=== PATIENT | female | born 1945 | race Caucasian/White ===

== ENCOUNTER 2025-07-09 14:10 | Observation (INO) ==
--- NOTE | 2025-07-09 14:55 | DR.CP ---
HPI Time Seen Time Seen by Provider: 07/09/25 14:39 PCP Primary Care Physician: Jude Viera Complaint Chief Complaint Doctor Comments: 80 yo F, hx of cardiac disease with prior pacemaker placement, hx afib on pradaxa, c/o RQ abd pain for past 1 wk. Admits to assoc nausea. Denies vomiting or diarrhea. Denies other complaints. Chief Complaint:: Pt states for the last week she has had some RUQ pain that goes through her abdomen to her back and has radiated to her epigastric area. Pt c/o dizziness for the last 4 days. Denies fever, vomiting or diarrhea. COVID-19 Coronavirus risk:travel/contact w/high risk person: No Has patient experienced Coronavirus symptoms: No Source History Provided: Patient and Family Member Mode of Arrival Mode of Arrival: Ambulatory Timing Onset of Chief Complaint: 07/02/25 Location Chest Pain Radiation Location: None Associated Signs and Symptoms Associated Signs and Symptoms: None PMH PMH Past Medical History: Yes Past Medical History: Arthritis, Hypertension and Renal Disease Past Medical History Comment: A-fib Past Surgical History: Yes Surgical History: Hysterectomy, Ortho Surgery and Weight Loss Surgery Past Surgical History Comment: pacemaker, rt knee ortho Family History History of Family Medical Conditions: Yes Family Medical History: Diabetes Mellitus, Cancer, Coronary Artery Disease and Hypertension Social History Alcohol Use: None Do you use any recreational Drugs:: No Lives With: Family Lives Where: Home Travel Risk Coronavirus risk:travel/contact w/high risk person: No Has patient experienced Coronavirus symptoms: No Infectious screening Have you traveled outside the country in the last 6 months?: No Isolation: Standard ROS Review of Systems Gastrointestinal/Abdominal: Abdominal Pain (RUQ) and Nausea; negative Diarrhea or Vomiting All Other Systems: Reviewed and Negative PE Vitals Vitals: Vital Signs Temperature 97.4 F Pulse Rate 76 Respiratory Rate 19 Blood Pressure 98/59 O2 Sat by Pulse Oximetry 98 General Limitations: No Limitations General Appearance: Alert and In No Apparent Distress Head Head Exam: Normal Inspection Eyes Eye exam: Normal Appearance ENT ENT Exam: Normal Exam Chest Chest Inspection: Normal Inspection Respiratory Respiratory Exam: Normal Lung Sounds Bilat Cardiovascular Cardiovascular Exam: Regular Rate and Normal Rhythm Pulse: Normal Edema: Normal Abdominal Exam Abdominal Exam: Soft, Tenderness (RUQ) and Rebound; negative Distention or Guarding Extremities Extremities Exam: Normal Inspection Back Back Exam: Normal Inspection Neurologic Neurological Exam: Alert and Oriented X3 Psychiatric Psychiatric Exam: Normal Affect and Normal Mood Skin Skin Exam: Warm, Dry, Intact and Normal Color ROR Labs Reviewed Laboratory Results Reviewed?: Yes 07/09/25 15:01 07/09/25 15:01 Laboratory: WBC 7.4 X10^3/uL (3.6-10.0) 07/09/25 15:01 RBC 4.01 X10^6/uL (3.5-5.4) 07/09/25 15:01 Hgb 11.4 g/dL (12.0-16.0) L 07/09/25 15:01 Hct 35.1 % (36.0-47.0) L 07/09/25 15:01 MCV 87.5 fL (80.0-100.0) 07/09/25 15:01 MCH 28.5 pg (27.0-34.0) 07/09/25 15:01 MCHC 32.6 g/dL (33.0-35.0) L 07/09/25 15:01 RDW 17.4 % (11.6-16.5) H 07/09/25 15:01 Plt Count 223 X10^3/uL (150.0-450.0) 07/09/25 15:01 MPV 8.5 fL (7.4-11.0) 07/09/25 15:01 Neut % (Auto) 64.0 % (42.0-75.0) 07/09/25 15:01 Lymph % (Auto) 17.5 % (21.0-51.0) L 07/09/25 15:01 [place] % (Auto) 11.2 % (0.0-13.0) 07/09/25 15:01 Eos % (Auto) 6.7 % (0.9-2.9) H 07/09/25 15:01 Baso % (Auto) 0.6 % (0.2-1.0) 07/09/25 15:01 Neut # (Auto) 4.7 x10^3/uL (2.2-4.8) 07/09/25 15:01 Lymph # (Auto) 1.3 X10^3/uL (1.3-2.9) 07/09/25 15:01 [place] # (Auto) 0.8 x10^3/uL (0.3-0.8) 07/09/25 15:01 Eos # (Auto) 0.5 x10^3/uL (0.0-0.2) H 07/09/25 15:01 Baso # (Auto) 0.0 X10^3/uL (0.0-0.1) 07/09/25 15:01 Absolute Nucleated RBC 0.0 /100WBC 07/09/25 15:01 PT 38.0 SECONDS (11.8-14.3) 07/09/25 15:01 INR Target Range - 07/09/25 15:01 INR 3.84 (0.8-1.3) H 07/09/25 15:01 APTT 142.3 SECONDS (22.9-36.5) H* 07/09/25 15:01 PTT Comment - 07/09/25 15:01 Sodium 139 mmol/L (136-145) 07/09/25 15:01 Corrected Sodium TNP 07/09/25 15:01 Potassium 4.0 mmol/L (3.5-5.1) 07/09/25 15:01 Chloride 101 mmol/L (98-107) 07/09/25 15:01 Carbon Dioxide 28.7 mmol/L (21-32) 07/09/25 15:01 BUN 30 mg/dL (7-18) H 07/09/25 15:01 Creatinine 2.91 mg/dL (0.55-1.02) H 07/09/25 15:01 Est GFR (MDRD) Af Amer 20 (>60) L 07/09/25 15:01 Est GFR (MDRD) Non-Af 17 (>60) L 07/09/25 15:01 Glucose 97 mg/dL (65-99) 07/09/25 15:01 Calcium 8.6 mg/dL (8.5-10.1) 07/09/25 15:01 Corrected Calcium TNP 07/09/25 15:01 Magnesium 2.0 mg/dL (2.0-2.9) 07/09/25 15:01 Total Bilirubin 0.20 mg/dL (0.2-1.0) 07/09/25 15:01 AST 20 Units/L (15-37) 07/09/25 15:01 ALT 12 Units/L (12-78) 07/09/25 15:01 Alkaline Phosphatase 109 Units/L (46-116) 07/09/25 15:01 Creatine Kinase 89 Units/L (26-192) 07/09/25 15:01 Troponin I High Sens 6.9 ng/L (4.0-60.0) 07/09/25 15:01 Total Protein 7.3 g/dL (6.4-8.2) 07/09/25 15:01 Albumin 3.6 g/dL (3.4-5.0) 07/09/25 15:01 Globulin 3.7 g/dL (2.5-4.5) 07/09/25 15:01 Albumin/Globulin Ratio 1.0 Ratio (1.1-2.1) L 07/09/25 15:01 Lipase 47 Units/L (16-77) 07/09/25 15:01 Opioid Opioid Risk Tool Age (Carl box if 16-45): No History of Preadolescent Sexual Abuse: No Total: 0 Total Score Risk Category: Low Risk Copyright: Melo SHELTON predicting aberrant behaviors Discharge Plan Diagnosis Discharge Problem: Acute cholecystitis Discharge Plan Patient Disposition: ADMITTED INPATIENT Condition: Stable Prescriptions: No Action cetirizine 10 mg tablet 10 mg PO QPM furosemide 20 mg tablet 20 mg PO QDAY metoprolol succinate 25 mg tablet extended release 24 hr 25 mg PO QDAY loratadine 10 mg tablet 10 mg PO QAM amiodarone 200 mg tablet 200 mg PO BID meloxicam 7.5 mg tablet 7.5 mg PO BID citalopram 20 mg tablet 20 mg PO QDAY ergocalciferol (vitamin D2) 1,250 mcg (50,000 unit) capsule 1,250 mcg PO QWEEK Rx Instructions: one capsule po q monday dabigatran etexilate 150 mg capsule 150 mg PO BID Health Concerns: Post Hospitalization: new medications and changes needed to prevent readmission or further decline. Pt educated and given instructions on all concerns. Plan of Treatment: Continue with present treatment and follow up plan. Pt is to keep follow up appointment as instructed and take medications as ordered. Orders to Discharge Patient Discharge Orders: Transfer (Routine); Ordered 07/09/25 Ordered By: David Carrasco Follow ups/Referrals Follow ups/Referrals: JUDE VIERA [Primary Care Provider, Unknown] - 3 days Instructions Stand Alone Forms: Find Help Web Site, Post Hospital Follow Up Care Print Language: KYRGYZ ADDITIONAL NOTES Additional Notes Additional Notes: Pt accepted by Dr Platt
--- NOTE | 2025-07-09 15:18 | EKG ---
Test Reason : epi abd pain Blood Pressure : */* mmHG Vent. Rate : 75 BPM Atrial Rate : 75 BPM P-R Int : 290 ms QRS Dur : 80 ms QT Int : 452 ms P-R-T Axes : * 11 -23 degrees QTc Int : 504 ms Atrial-paced rhythm with prolonged AV conduction Low voltage QRS Nonspecific T wave abnormality Cannot rule out Anterior infarct (cited on or before 13-SEP-2023) Abnormal ECG When compared with ECG of 13-SEP-2023 12:51, No significant change was found Confirmed by Jone Aldrich MD ([id number]) on 07/10/2025 5:32:52 AM Referred By: Confirmed By: Jone Aldrich MD
[2025-07-09 15:24] LABS: MEAN PLATELET VOLUME 8.5 fL (7.4-11.0); RED CELL DISTRIBUTION WIDTH 17.4 % (11.6-16.5)
[2025-07-09 15:29] LABS: INR 3.84 (0.8-1.3)
[2025-07-09 15:31] LABS: CREATININE 2.91 mg/dL (0.55-1.02); eGFR NON BLACK RACES 17 (>60)
--- NOTE | 2025-07-09 16:35 | RAD ---
EXAM: CHEST, 1 VIEW HISTORY: SOB; COMPARISON: No relevant prior studies were available for comparison at the time of interpretation. TECHNIQUE: CHEST, 1 VIEW FINDINGS: Chest: Lines and tubes: Left-sided pacemaker generator with lead or leads in satisfactory position. Mediastinum: Cardiac and mediastinal shadow is within normal limits for size and contour. Pulmonary vessels: No pulmonary vascular congestion. Lung bernal: Interstitial markings and hyperinflation of the lungs with diaphragmatic flattening. Pleura: No effusion. No pneumothorax. Bones and soft tissues: No acute osseous or soft tissue abnormality. IMPRESSION: 1. No acute cardiopulmonary abnormality THIS IS AN ELECTRONICALLY VERIFIED FINAL REPORT 07/09/2025 4:29 PM - Electronically signed by Zain Jaime MD
--- NOTE | 2025-07-09 16:35 | CT ---
EXAM: CT ABDOMEN AND PELVIS WITHOUT INTRAVENOUS CONTRAST HISTORY: Right upper quadrant abdominal pain.. TECHNIQUE: Spiral axial CT images are obtained through the abdomen and pelvis without the administration of intravenous contrast. Additional coronal and sagittal reformatted images are reconstructed. COMPARISON: None available. FINDINGS: GASTROINTESTINAL TRACT: Status post gastric sleeve partial gastrectomy. There is no evidence for bowel herniation, bowel obstruction, colitis or diverticulitis. A normal-appearing appendix is seen. GENITOURINARY SYSTEM: There is an approximately 3.5 cm x 3 cm x 3.4 cm exophytic right lower pole renal cyst (axial image 31; coronal image 37). The kidneys are otherwise unremarkable. There is no ureteral calculus or stigmata of obstructive uropathy. The urinary bladder is grossly unremarkable for a non-dedicated exam. BILIARY SYSTEM: There is cholelithiasis, consistent with sequela of chronic cholecystitis. Severely dilated/elongated gallbladder (approximately 14.7 cm long by 3.7 cm diameter), with questionable gallbladder wall thickening, which could reflect bladder outlet obstruction and acute cholecystitis in the appropriate clinical setting. Clinical correlation is advised. Consider follow-up evaluation with HIDA scan to confirm cystic duct obstruction and acute cholecystitis as clinically warranted. CT ABDOMEN: Aortoiliac atherosclerotic disease, without aneurysm formation. The liver, spleen, pancreas, adrenal glands, and inferior vena cava are within normal limits for a noncontrast CT scan. There is no intra-abdominal or retroperitoneal lymphadenopathy, free fluid, or free air seen. No abdominal herniation is noted. CT PELVIS: Status post hysterectomy. No pelvic sidewall or inguinal lymphadenopathy is seen. No inguinal herniation is noted. No free fluid or free air is seen. BONES AND JOINTS: Severe multilevel DDD is seen throughout the distal thoracic and lumbar spine. L4/5: DDD marked by posterior disc space narrowing; approximately 9.3 mm (grade 1) spondylolisthesis secondary to severe bilateral hypertrophic facet joint DJD, with resultant severe spinal canal stenosis and L5 nerve root impingements. Sagittal image 40-51; axial image 43-47. The visualized bony structures are otherwise within normal limits. LUNG BASES: The lung bases are clear. There is cardiomegaly with four-chamber enlargement. Cardiac pacemaker wires are noted in situ. IMPRESSION: 1. Cholelithiasis, consistent with sequela of chronic cholecystitis. 2. Severely dilated/elongated gallbladder (approximately 14.7 cm long by 3.7 cm diameter), with questionable gallbladder wall thickening, which could reflect bladder outlet obstruction and acute cholecystitis in the appropriate clinical setting. Clinical correlation is advised. 3. Consider follow-up evaluation with HIDA scan to confirm cystic duct obstruction and acute cholecystitis as clinically warranted. 4. No evidence for ureteral stones or obstructive uropathy. 5. Approximately 3.5 cm x 3 cm x 3.4 cm exophytic right lower pole renal cyst (axial image 31; coronal image 37). 6. Status post gastric sleeve partial gastrectomy, without evidence for suture dehiscence or leak. 7. No evidence for acute appendicitis, bowel herniation/obstruction, colitis or diverticulitis seen. 8. No free fluid, free air, mass lesions, or lymphadenopathy seen. 9. Status post hysterectomy. 10. L4/5: DDD marked by posterior disc space narrowing; approximately 9.3 mm (grade 1) spondylolisthesis secondary to severe bilateral hypertrophic facet joint DJD, with resultant severe spinal canal stenosis and L5 nerve root impingements. Sagittal image 40-51; axial image 43-47. THIS IS AN ELECTRONICALLY VERIFIED FINAL REPORT 07/09/2025 4:20 PM - Electronically signed by Charlie Sorenson MD
[2025-07-09] MEDS ORDERED: PRECEDEX INJ VIAL ONE (17:11)
[2025-07-09] MEDS ORDERED: XYLOCAINE 2 % (PLAIN) ONE (17:11)
[2025-07-09] MEDS ORDERED: ULTANE GAS IN ONE (17:11)
[2025-07-09] MEDS ORDERED: ZOFRAN INJ 4 MG VIAL IVP PRN (17:25)
[2025-07-09] MEDS ORDERED: TYLENOL 325 MG TAB PO PRN (17:25)
[2025-07-09 17:49] VITALS: BMI 33.0
[2025-07-09] MEDS ORDERED: CONSULT PHARMACY - POTASSIUM & MAGNESIUM XX SCH (18:00)
[2025-07-09] MEDS: MORPHINE SULFATE INJ 2 MG INJ IVP PRN (18:18)
[2025-07-09] MEDS: NS 1,000 ML IV 1,000 ML IV SCH (18:18)
--- NOTE | 2025-07-09 19:57 | EKG ---
Test Reason : Q6 HOUR EKG Blood Pressure : */* mmHG Vent. Rate : 70 BPM Atrial Rate : 70 BPM P-R Int : 280 ms QRS Dur : 82 ms QT Int : 478 ms P-R-T Axes : 60 13 -46 degrees QTc Int : 516 ms Atrial-paced rhythm with prolonged AV conduction Nonspecific T wave abnormality Prolonged QT Abnormal ECG When compared with ECG of 09-JUL-2025 14:57, (Unconfirmed) No significant change was found Confirmed by Jone Aldrich MD ([id number]) on 07/10/2025 5:30:35 AM Referred By: Confirmed By: Jone Aldrich MD
[2025-07-09] MEDS: CORDARONE TAB 200 MG PO SCH (20:07)
[2025-07-10] MEDS ORDERED: HIBICLENS WASH ONE (03:03)
[2025-07-10] MEDS: HIBICLENS WASH EXT ONE (05:11)
--- NOTE | 2025-07-10 06:06 | RAD ---
EXAM: CHEST, 1 VIEW HISTORY: PRE OO-CHOLECYSTITIS; HTN RENAL DISEASE SX: HYST, ORTHO, WLS, PACEMAKER COMPARISON: 07/11/2025 FINDINGS: The cardiomediastinal silhouette is stable. Left-sided pacer and pacer wires unchanged. Chronic appearing interstitial changes in the lungs. No acute airspace disease. No pneumothorax or effusion. No acute osseous abnormality. IMPRESSION: No acute cardiopulmonary disease. THIS IS AN ELECTRONICALLY VERIFIED FINAL REPORT 07/10/2025 6:02 AM - Electronically signed by Neftaly Miranda MD
[2025-07-10 06:11] LABS: MEAN PLATELET VOLUME 9.1 fL (7.4-11.0); RED CELL DISTRIBUTION WIDTH 17.5 % (11.6-16.5)
[2025-07-10 06:29] LABS: COR CA(FOR HYPOALB) 9.0 mg/dL (8.5-10.1); CREATININE 2.41 mg/dL (0.55-1.02); eGFR NON BLACK RACES 21 (>60)
[2025-07-10] MEDS ORDERED: CONSULT PHARMACY - POTASSIUM & MAGNESIUM XX SCH (07:00)
[2025-07-10] MEDS: K-DUR TAB 20 MEQ PO SCH (08:43)
[2025-07-10] MEDS: CELEXA PO SCH (08:43)
[2025-07-10] MEDS: TOPROL XL PO SCH (08:43)
[2025-07-10] MEDS: LASIX PO SCH (08:43)
[2025-07-10] MEDS: CLARITIN PO SCH (08:43)
--- NOTE | 2025-07-10 08:48 | DR.PROGNOT ---
HOSPITAL PROGRESS NOTE Progress Note for Day of: Progress Note Date: 07/10/25 Chief Complaint Chief Complaint: Less abdominal pain today, no nausea or vomiting. CAT scan showed distended gallbladder with possible wall thickening indicating possible acute calculus cholecystitis. WBC 5.7, hemoglobin 11.5, PT 3.8, with PTT 142, BUN 28, creatinine 2.4. CAT scan showed distended gallbladder with gallstones. Patient is 5 foot 2 inches tall and weighing 181 pounds, her BMI 33.1. Abdomen is soft and flat with moderate right upper quadrant tenderness. Past Medical Family Social History Allergies: Allergies No Known Drug Allergies Allergy (Verified 07/09/25 14:24) Vital Signs Vital Signs: Vital Signs Temperature 97.4 F Temperature 97.6 F Pulse Rate [Right] 72 Pulse Rate [Right] 60 Respiratory Rate 16 Respiratory Rate 16 Blood Pressure [Left Arm] 141/64 Blood Pressure [Left Arm] 106/61 O2 Sat by Pulse Oximetry 96 O2 Sat by Pulse Oximetry 95 Physical Exam Oriented: Normal Eyes: Normal Ear: Normal Nose: Normal Throat: Normal Respiratory: Normal Cardiovascular: Normal GI:Auscultation: Decreased GI:Palpation: Normal (Mild to moderate right upper quadrant tenderness.) Speech Pattern: Clear and Appropriate Laboratory and Diagnostics 07/10/25 05:16 07/10/25 05:16 Labs: Laboratory WBC 5.7 X10^3/uL (3.6-10.0) 07/10/25 05:16 RBC 4.00 X10^6/uL (3.5-5.4) 07/10/25 05:16 Hgb 11.5 g/dL (12.0-16.0) L 07/10/25 05:16 Hct 34.7 % (36.0-47.0) L 07/10/25 05:16 MCV 86.8 fL (80.0-100.0) 07/10/25 05:16 MCH 28.9 pg (27.0-34.0) 07/10/25 05:16 MCHC 33.3 g/dL (33.0-35.0) 07/10/25 05:16 RDW 17.5 % (11.6-16.5) H 07/10/25 05:16 Plt Count 169 X10^3/uL (150.0-450.0) 07/10/25 05:16 MPV 9.1 fL (7.4-11.0) 07/10/25 05:16 Neut % (Auto) 54.5 % (42.0-75.0) 07/10/25 05:16 Lymph % (Auto) 21.1 % (21.0-51.0) 07/10/25 05:16 [place] % (Auto) 14.6 % (0.0-13.0) H 07/10/25 05:16 Eos % (Auto) 8.8 % (0.9-2.9) H 07/10/25 05:16 Baso % (Auto) 1.0 % (0.2-1.0) 07/10/25 05:16 Neut # (Auto) 3.1 x10^3/uL (2.2-4.8) 07/10/25 05:16 Lymph # (Auto) 1.2 X10^3/uL (1.3-2.9) L 07/10/25 05:16 [place] # (Auto) 0.8 x10^3/uL (0.3-0.8) 07/10/25 05:16 Eos # (Auto) 0.5 x10^3/uL (0.0-0.2) H 07/10/25 05:16 Baso # (Auto) 0.1 X10^3/uL (0.0-0.1) 07/10/25 05:16 Absolute Nucleated RBC 0.4 /100WBC 07/10/25 05:16 PT 38.0 SECONDS (11.8-14.3) 07/09/25 15:01 INR Target Range - 07/09/25 15:01 INR 3.84 (0.8-1.3) H 07/09/25 15:01 APTT 142.3 SECONDS (22.9-36.5) H* 07/09/25 15:01 PTT Comment - 07/09/25 15:01 Sodium 143 mmol/L (136-145) 07/10/25 05:16 Corrected Sodium TNP 07/10/25 05:16 Potassium 3.7 mmol/L (3.5-5.1) 07/10/25 05:16 Chloride 106 mmol/L (98-107) 07/10/25 05:16 Carbon Dioxide 28.2 mmol/L (21-32) 07/10/25 05:16 BUN 28 mg/dL (7-18) H 07/10/25 05:16 Creatinine 2.41 mg/dL (0.55-1.02) H 07/10/25 05:16 Est GFR (MDRD) Af Amer 25 (>60) L 07/10/25 05:16 Est GFR (MDRD) Non-Af 21 (>60) L 07/10/25 05:16 Glucose 62 mg/dL (65-99) L 07/10/25 05:16 Calcium 8.4 mg/dL (8.5-10.1) L 07/10/25 05:16 Corrected Calcium 9.0 mg/dL (8.5-10.1) 07/10/25 05:16 Magnesium 2.0 mg/dL (2.0-2.9) 07/09/25 15:01 Total Bilirubin 0.20 mg/dL (0.2-1.0) 07/10/25 05:16 AST 19 Units/L (15-37) 07/10/25 05:16 ALT 9 Units/L (12-78) L 07/10/25 05:16 Alkaline Phosphatase 103 Units/L (46-116) 07/10/25 05:16 Creatine Kinase 89 Units/L (26-192) 07/09/25 15:01 Troponin I High Sens 6.9 ng/L (4.0-60.0) 07/09/25 15:01 Total Protein 6.6 g/dL (6.4-8.2) 07/10/25 05:16 Albumin 3.2 g/dL (3.4-5.0) L 07/10/25 05:16 Globulin 3.4 g/dL (2.5-4.5) 07/10/25 05:16 Albumin/Globulin Ratio 0.9 Ratio (1.1-2.1) L 07/10/25 05:16 Lipase 47 Units/L (16-77) 07/09/25 15:01 Assessment and Plan 1: Calculus cholecystitis with distended gallbladder. Laparoscopic cholecystectomy after medical and cardiac evaluation and clearance. 2: Atrial fibrillation and hypertension. On anticoagulant and cardiac medications. 3: Chronic kidney disease, being followed by a patient portal concierge. 4: Arthritis, previous knee replacement. Same home medications. Problem Patient Problems: Patient Problems Acute cholecystitis (Acute) K81.0
[2025-07-10] MEDS ORDERED: PHARMACY CONSULT XX SCH (09:00)
[2025-07-10] MEDS: NORCO 5/325 MG TAB PO PRN (13:09)
--- NOTE | 2025-07-10 13:33 | DR.CONSULT ---
CONSULT Consultation for Day of: Date: 07/10/25 Chief Complaint Chief Complaint: preop GB Allergies Allergies Allergy/AdvReac Type Severity Reaction Status Date / Time No Known Drug Allergies Allergy Verified 07/09/25 14:24 History of Present Illness History of Present Illness: 80 yo female- cath 2020: no cad- has afib/pacer- on multaq and no afib for last year- takes pradaxa- last dose monday- poor po/abd pain for week- found to have GB issues- pending surgery- no sign cv sx before GB flare Past Medical History Past Medical History: Arthritis, Hypertension and Renal Disease Past Surgical History Surgical History: Hysterectomy, Ortho Surgery, Weight Loss Surgery and Other Family History Family Medical History: Diabetes Mellitus, [place], Coronary Artery Disease and Sudden Cardiac Social History Alcohol Use: None Drug Use: None Medications Home Medications: No Known Drug Allergies Allergy (Verified 07/09/25 14:24) CONTINUE taking the following medications dronedarone 400 mg tablet (Multaq) 400 mg PO BID 07/10/25 [History] Physical Exam Vital Signs: Vital Signs Temperature 97.7 F Temperature 97.4 F Pulse Rate [Right] 70 Pulse Rate [Right] 72 Respiratory Rate 18 Respiratory Rate 17 Respiratory Rate 16 Blood Pressure [Left Arm] 112/61 Blood Pressure [Left Arm] 141/64 O2 Sat by Pulse Oximetry 95 O2 Sat by Pulse Oximetry 96 alert ox3 nad no bruits clear lungs rrr cindy pacer ok- some edema legs- now with pneumatic device labs:hct 34 inr 3.8 ptt 142 cr 2.9 to 2.4 trop negative ekg: atrial paced ns t cxr: nad echo 06/13: good lv, aos sclerosis/mild mr pa 44 cath 2020: no cad Plan (1) Acute cholecystitis: Status: Acute (2) Atrial fibrillation: Status: Acute Narrative Support Text: atrial paced- on multaq not amio- will change Plan: please try to continue multaq periop to prevent afib (3) Coagulopathy: Status: Acute Narrative Support Text: elevated inr/ptt probably the effects of pradaxa but will recheck in am 2 days off drug (4) Renal insufficiency: Status: Acute (5) Hypertension: Status: Acute (6) Preop cardiovascular exam: Status: Acute Narrative Support Text: acceptable risk- make sure coags normalized after stopping pradaxa in am- ( 2 days off drug)
[2025-07-10] MEDS: MULTAQ PO SCH (16:24)
[2025-07-11 06:12] LABS: MEAN PLATELET VOLUME 8.6 fL (7.4-11.0); RED CELL DISTRIBUTION WIDTH 17.6 % (11.6-16.5)
[2025-07-11 06:30] LABS: INR 1.94 (0.8-1.3)
[2025-07-11 06:33] LABS: COR CA(FOR HYPOALB) 9.1 mg/dL (8.5-10.1); CREATININE 1.96 mg/dL (0.55-1.02); eGFR NON BLACK RACES 26 (>60)
--- NOTE | 2025-07-11 06:50 | NOTE.SOAP ---
Soap Note Note for Day of Date of Exam: 07/11/25 Subjective Data Subjective Data: preop labs abnormal Objective Data Objective Data: inr 1.94 ptt 83.5-sill elevated 2 days afer no pradaxa( due most likely to renal disease as pradaxa is metabolized by kidney) Assessment Assessment: afib/pacer/gb issues- elevated inr/ptt Plan Plan: give more time before surgery to clear pradaxa- in future:lower dose of pradaxa due to kidneys ( 75 mg)
[2025-07-11] MEDS ORDERED: CONSULT PHARMACY - POTASSIUM & MAGNESIUM XX SCH (07:00)
--- NOTE | 2025-07-11 07:00 | DR.CONSULT ---
CONSULT Consultation for Day of: Date: 07/10/25 Chief Complaint Chief Complaint: Abdominal pain, nausea Allergies Allergies Allergy/AdvReac Type Severity Reaction Status Date / Time No Known Drug Allergies Allergy Verified 07/09/25 14:24 History of Present Illness History of Present Illness: Patient is a 80-year-old female with a past medical history of pacemaker, atrial fibrillation on Pradaxa, hypertension, CKD, presenting with abdominal pain and primarily in the right upper quadrant for the past week. She also reports having nausea. She denies fevers or chills. She denies vomiting or diarrhea. Labs/imaging: WBC 5.7, hemoglobin 11.5, platelets 169, sodium 143, potassium 3.7, creatinine 2.41, glucose 62, Chest x-ray revealed no acute cardiopulmonary findings, CT abdomen pelvis was obtained that revealed findings of cholelithiasis and cholecystitis. Medicine consulted for medical management. Cardiology was consulted for clearance for surgery. Akua ent is otherwise stable. She continues to have symptoms. Will restart home medications and hold Pradaxa at this time. Her INR and PTT are elevated. Otherwise continue with current treatment plan. Continue closely monitor and follow-up labs/imaging. Time spent on clinical assessment, reviewing labs and imaging, decision making, and documentation greater than 45 minutes. Past Medical History Past Medical History: Arthritis, Hypertension and Renal Disease Past Surgical History Surgical History: Hysterectomy, Ortho Surgery, Weight Loss Surgery and Other Family History Family Medical History: Diabetes Mellitus, [place], Coronary Artery Disease and S udden Cardiac Social History Alcohol Use: None Drug Use: None Medications Home Medications: No Known Drug Allergies Allergy (Verified 07/09/25 14:24) CONTINUE taking the following medications dronedarone 400 mg tablet (Multaq) 400 mg PO BID 07/10/25 [History] Review of Systems Constitutional: Weakness Eyes: No Symptoms Reported ENT: No Symptoms Reported Respiratory: No Symptoms Reported Cardiovascular: No Symptoms Reported Gastrointestinal: Nausea and Abdominal Pain Genitourinary: No Symptoms Reported Musculoskeletal: No Symptoms Reported Skin: No Symptoms Reported Neurological: No Symptoms Reported Physical Exam Vital Signs: Vital Signs Temperature 97.7 F Temperature 97.4 F Pulse Rate [Right] 70 Pulse Rate [Right] 72 Respiratory Rate 18 Respiratory Rate 17 Respiratory Rate 16 Blood Pressure [Left Arm] 112/61 Blood Pressure [Left Arm] 141/64 O2 Sat by Pulse Oximetry 95 O2 Sat by Pulse Oximetry 96 Oriented: Normal Eyes: Normal Ear: Normal Nose: Normal Respiratory: Clear Throughout Cardiovascular: Normal : Normal Auscultation: Bowel Sounds: Normal Palpation: Normal Tenderness: RUQ and Moderate Skin: Normal Musculoskeletal: Normal Psychiatric: Normal Speech Pattern: Clear Plan (1) Acute cholecystitis: Status: Acute (2) Atrial fibrillation: Status: Acute (3) Coagulopathy: Status: Acute (4) Renal insufficiency: Status: Acute (5) Hypertension: Status: Acute (6) Preop cardiovascular exam: Status: Acute
[2025-07-11] MEDS: D50W ABBOJECT SYR IV ONE (07:01)
[2025-07-11] MEDS: K-DUR TAB 20 MEQ PO SCH (08:05)
[2025-07-11] MEDS: MAG-OX TAB PO SCH (08:05)
--- NOTE | 2025-07-11 12:49 | DR.PROGNOT ---
HOSPITAL PROGRESS NOTE Progress Note for Day of: Progress Note Date: 07/11/25 Chief Complaint Chief Complaint: 80-year-old female who was admitted with acute cholecystitis, she still complaining of right upper quadrant pain but no nausea or vomiting today. Her PTT is still elevated up to 83 with PT of 22.3, white count is 5.6. BUN and creatinine are still elevated. The rest of her systemic review is the same as before. Patient is complaining of being thirsty but actually not hungry, no nausea or vomiting today. Her examination is the same as before, no evidence of acute abdomen right now. Past Medical Family Social History Past Med/Fam/Surg Hx: No changes since H&P and Changes noted (describe) Allergies: Allergies No Known Drug Allergies Allergy (Verified 07/09/25 14:24) Review Of Systems Changes in ROS: No changes Vital Signs Vital Signs: Vital Signs Temperature 97.9 F Temperature 97.4 F Pulse Rate [Right] 71 Pulse Rate [Right] 72 Respiratory Rate 20 Respiratory Rate 21 Blood Pressure [Left Arm] 102/57 Blood Pressure [Left Arm] 94/55 O2 Sat by Pulse Oximetry 96 O2 Sat by Pulse Oximetry 95 Physical Exam Oriented: Normal Eyes: Normal Ear: Normal Nose: Normal Throat: Normal Respiratory: Normal Cardiovascular: Normal : Normal GI:Auscultation: Normal GI:Palpation: Normal GI: Tenderness: RUQ and Moderate Skin: Normal Musculoskeletal: Normal Psychiatric: Normal Speech Pattern: Clear Laboratory and Diagnostics 07/11/25 05:35 07/11/25 05:35 Labs: Laboratory WBC 5.6 X10^3/uL (3.6-10.0) 07/11/25 05:35 RBC 3.55 X10^6/uL (3.5-5.4) 07/11/25 05:35 Hgb 10.4 g/dL (12.0-16.0) L 07/11/25 05:35 Hct 30.9 % (36.0-47.0) L 07/11/25 05:35 MCV 87.0 fL (80.0-100.0) 07/11/25 05:35 MCH 29.4 pg (27.0-34.0) 07/11/25 05:35 MCHC 33.7 g/dL (33.0-35.0) 07/11/25 05:35 RDW 17.6 % (11.6-16.5) H 07/11/25 05:35 Plt Count 182 X10^3/uL (150.0-450.0) 07/11/25 05:35 MPV 8.6 fL (7.4-11.0) 07/11/25 05:35 Neut % (Auto) 59.2 % (42.0-75.0) 07/11/25 05:35 Lymph % (Auto) 19.9 % (21.0-51.0) L 07/11/25 05:35 [place] % (Auto) 11.8 % (0.0-13.0) 07/11/25 05:35 Eos % (Auto) 8.3 % (0.9-2.9) H 07/11/25 05:35 Baso % (Auto) 0.8 % (0.2-1.0) 07/11/25 05:35 Neut # (Auto) 3.3 x10^3/uL (2.2-4.8) 07/11/25 05:35 Lymph # (Auto) 1.1 X10^3/uL (1.3-2.9) L 07/11/25 05:35 [place] # (Auto) 0.7 x10^3/uL (0.3-0.8) 07/11/25 05:35 Eos # (Auto) 0.5 x10^3/uL (0.0-0.2) H 07/11/25 05:35 Baso # (Auto) 0.0 X10^3/uL (0.0-0.1) 07/11/25 05:35 Absolute Nucleated RBC 0.0 /100WBC 07/11/25 05:35 PT 22.3 SECONDS (11.8-14.3) 07/11/25 05:35 INR Target Range - 07/11/25 05:35 INR 1.94 (0.8-1.3) H 07/11/25 05:35 APTT 83.5 SECONDS (22.9-36.5) H 07/11/25 05:35 PTT Comment - 07/11/25 05:35 Sodium 142 mmol/L (136-145) 07/11/25 05:35 Corrected Sodium TNP 07/11/25 05:35 Potassium 3.9 mmol/L (3.5-5.1) 07/11/25 05:35 Chloride 107 mmol/L (98-107) 07/11/25 05:35 Carbon Dioxide 29.0 mmol/L (21-32) 07/11/25 05:35 BUN 21 mg/dL (7-18) H 07/11/25 05:35 Creatinine 1.96 mg/dL (0.55-1.02) H 07/11/25 05:35 Est GFR (MDRD) Af Amer 32 (>60) L 07/11/25 05:35 Est GFR (MDRD) Non-Af 26 (>60) L 07/11/25 05:35 Glucose 54 mg/dL (65-99) L 07/11/25 05:35 POC Glucose (mg/dL) 127 mg/dL (65-99) H 07/11/25 08:03 Calcium 8.3 mg/dL (8.5-10.1) L 07/11/25 05:35 Corrected Calcium 9.1 mg/dL (8.5-10.1) 07/11/25 05:35 Magnesium 1.9 mg/dL (2.0-2.9) L 07/11/25 05:35 Total Bilirubin 0.30 mg/dL (0.2-1.0) 07/11/25 05:35 AST 18 Units/L (15-37) 07/11/25 05:35 ALT 10 Units/L (12-78) L 07/11/25 05:35 Alkaline Phosphatase 95 Units/L (46-116) 07/11/25 05:35 Creatine Kinase 89 Units/L (26-192) 07/09/25 15:01 Troponin I High Sens 6.9 ng/L (4.0-60.0) 07/09/25 15:01 Total Protein 6.1 g/dL (6.4-8.2) L 07/11/25 05:35 Albumin 3.0 g/dL (3.4-5.0) L 07/11/25 05:35 Globulin 3.1 g/dL (2.5-4.5) 07/11/25 05:35 Albumin/Globulin Ratio 1.0 Ratio (1.1-2.1) L 07/11/25 05:35 Lipase 47 Units/L (16-77) 07/09/25 15:01 Assessment and Plan 1: Calculus cholecystitis with distended gallbladder. Laparoscopic cholecystectomy after medical and cardiac evaluation and clearance. 2: Atrial fibrillation and hypertension. 3: Chronic kidney disease, being followed by a cdl service technician. 4: Arthritis, previous knee replacement. Same home medications. Problem Patient Problems: Patient Problems Acute cholecystitis (Acute) K81.0
--- NOTE | 2025-07-11 17:31 | PCM.PROG ---
Progress Note Progress Note for Day of Date of Exam: 07/11/25 Subjective Subjective: Patient is a 80-year-old female with a past medical history of pacemaker, atrial fibrillation on Pradaxa, hypertension, CKD, admitted for acute cholecystitis. Medicine consulted for medical management. Cardiology consulted for clearance for surgery. This morning, she is sitting in recliner. She reports some improvement in her nausea but still has the abdominal pain. No acute events overnight. Labs/imaging: WBC 5.6, hemoglobin 10.4, platelets 182, sodium 142, potassium 3.9, creatinine 2.41>1.96, glucose 54. INR and APTT trending down. Cardiology recommends levels to decrease more before surgery. Home medications have been resumed. Continue to hold Pradaxa at this time. After surgery when it is decided to resume, cardiology recommends 75 mg daily of Pradaxa due to CKD. Otherwise continue with current treatment plan. Continue closely monitor and follow-up labs/imaging. Past Medical Family Social History Past Med/Fam/Surg Hx: No changes since H&P and Changes noted (describe) Allergies: Allergies No Known Drug Allergies Allergy (Verified 07/09/25 14:24) Review of Systems ROS changes noted: see HPI Vital Signs and I&O's Vital Signs: Vital Signs Temperature 97.7 F Temperature 97.9 F Pulse Rate [Right] 71 Pulse Rate [Right] 71 Respiratory Rate 19 Respiratory Rate 20 Blood Pressure [Left Arm] 131/63 Blood Pressure [Left Arm] 102/57 O2 Sat by Pulse Oximetry 98 O2 Sat by Pulse Oximetry 96 Intake and Output: Intake & Output 07/08/25 07/09/25 07/10/25 07/11/25 23:59 23:59 23:59 23:59 Intake Total 841 / 841 1 / 2670 Balance 841 / 841 1 / 2671 1877 Physical Exam Oriented: Normal Eyes: Normal Ear: Normal Nose: Normal Throat: Normal Respiratory: Normal Cardiovascular: Normal : Normal Auscultation: Bowel Sounds: Normal Tenderness: RUQ and Moderate Skin: Normal Musculoskeletal: Normal Psychiatric: Normal Speech Pattern: Clear Laboratory and Diagnostics 07/11/25 05:35 07/11/25 05:35 Labs: Laboratory WBC 5.6 X10^3/uL (3.6-10.0) 07/11/25 05:35 RBC 3.55 X10^6/uL (3.5-5.4) 07/11/25 05:35 Hgb 10.4 g/dL (12.0-16.0) L 07/11/25 05:35 Hct 30.9 % (36.0-47.0) L 07/11/25 05:35 MCV 87.0 fL (80.0-100.0) 07/11/25 05:35 MCH 29.4 pg (27.0-34.0) 07/11/25 05:35 MCHC 33.7 g/dL (33.0-35.0) 07/11/25 05:35 RDW 17.6 % (11.6-16.5) H 07/11/25 05:35 Plt Count 182 X10^3/uL (150.0-450.0) 07/11/25 05:35 MPV 8.6 fL (7.4-11.0) 07/11/25 05:35 Neut % (Auto) 59.2 % (42.0-75.0) 07/11/25 05:35 Lymph % (Auto) 19.9 % (21.0-51.0) L 07/11/25 05:35 [place] % (Auto) 11.8 % (0.0-13.0) 07/11/25 05:35 Eos % (Auto) 8.3 % (0.9-2.9) H 07/11/25 05:35 Baso % (Auto) 0.8 % (0.2-1.0) 07/11/25 05:35 Neut # (Auto) 3.3 x10^3/uL (2.2-4.8) 07/11/25 05:35 Lymph # (Auto) 1.1 X10^3/uL (1.3-2.9) L 07/11/25 05:35 [place] # (Auto) 0.7 x10^3/uL (0.3-0.8) 07/11/25 05:35 Eos # (Auto) 0.5 x10^3/uL (0.0-0.2) H 07/11/25 05:35 Baso # (Auto) 0.0 X10^3/uL (0.0-0.1) 07/11/25 05:35 Absolute Nucleated RBC 0.0 /100WBC 07/11/25 05:35 PT 22.3 SECONDS (11.8-14.3) 07/11/25 05:35 INR Target Range - 07/11/25 05:35 INR 1.94 (0.8-1.3) H 07/11/25 05:35 APTT 83.5 SECONDS (22.9-36.5) H 07/11/25 05:35 PTT Comment - 07/11/25 05:35 Sodium 142 mmol/L (136-145) 07/11/25 05:35 Corrected Sodium TNP 07/11/25 05:35 Potassium 3.9 mmol/L (3.5-5.1) 07/11/25 05:35 Chloride 107 mmol/L (98-107) 07/11/25 05:35 Carbon Dioxide 29.0 mmol/L (21-32) 07/11/25 05:35 BUN 21 mg/dL (7-18) H 07/11/25 05:35 Creatinine 1.96 mg/dL (0.55-1.02) H 07/11/25 05:35 Est GFR (MDRD) Af Amer 32 (>60) L 07/11/25 05:35 Est GFR (MDRD) Non-Af 26 (>60) L 07/11/25 05:35 Glucose 54 mg/dL (65-99) L 07/11/25 05:35 POC Glucose (mg/dL) 127 mg/dL (65-99) H 07/11/25 08:03 Calcium 8.3 mg/dL (8.5-10.1) L 07/11/25 05:35 Corrected Calcium 9.1 mg/dL (8.5-10.1) 07/11/25 05:35 Magnesium 1.9 mg/dL (2.0-2.9) L 07/11/25 05:35 Total Bilirubin 0.30 mg/dL (0.2-1.0) 07/11/25 05:35 AST 18 Units/L (15-37) 07/11/25 05:35 ALT 10 Units/L (12-78) L 07/11/25 05:35 Alkaline Phosphatase 95 Units/L (46-116) 07/11/25 05:35 Creatine Kinase 89 Units/L (26-192) 07/09/25 15:01 Troponin I High Sens 6.9 ng/L (4.0-60.0) 07/09/25 15:01 Total Protein 6.1 g/dL (6.4-8.2) L 07/11/25 05:35 Albumin 3.0 g/dL (3.4-5.0) L 07/11/25 05:35 Globulin 3.1 g/dL (2.5-4.5) 07/11/25 05:35 Albumin/Globulin Ratio 1.0 Ratio (1.1-2.1) L 07/11/25 05:35 Lipase 47 Units/L (16-77) 07/09/25 15:01 Plan (1) Acute cholecystitis: Status: Acute (2) Atrial fibrillation: Status: Acute (3) Coagulopathy: Status: Acute (4) Renal insufficiency: Status: Acute (5) Hypertension: Status: Acute (6) Preop cardiovascular exam: Status: Acute
[2025-07-12 06:00] LABS: MEAN PLATELET VOLUME 9.4 fL (7.4-11.0); RED CELL DISTRIBUTION WIDTH 18.2 % (11.6-16.5)
[2025-07-12 06:10] LABS: COR CA(FOR HYPOALB) 8.8 mg/dL (8.5-10.1); CREATININE 1.76 mg/dL (0.55-1.02); eGFR NON BLACK RACES 30 (>60)
[2025-07-12] MEDS ORDERED: CONSULT PHARMACY - POTASSIUM & MAGNESIUM XX SCH (07:00)
[2025-07-12 07:34] LABS: INR 1.57 (0.8-1.3)
[2025-07-12] MEDS: MAG-OX TAB PO SCH (08:03)
[2025-07-12] MEDS: K-DUR TAB 20 MEQ PO SCH (08:04)
--- NOTE | 2025-07-12 09:53 | DR.PROGNOT ---
HOSPITAL PROGRESS NOTE Progress Note for Day of: Progress Note Date: 07/12/25 Chief Complaint Chief Complaint: 80-year-old female who was admitted with acute cholecystitis, she still complaining of right upper quadrant pain but no nausea or vomiting today. no new c/o . WBC6.8, plate 121.PT is 19 , INR 1.5, PTT 60. abdome is soft , Flat with RUQ tenderness Past Medical Family Social History Past Med/Fam/Surg Hx: No changes since H&P and Changes noted (describe) Allergies: Allergies No Known Drug Allergies Allergy (Verified 07/09/25 14:24) Review Of Systems Changes in ROS: see HPI Vital Signs Vital Signs: Vital Signs Temperature 97.6 F Temperature 98.1 F Pulse Rate [Right] 71 Pulse Rate [Right] 61 Respiratory Rate 20 Respiratory Rate 18 Respiratory Rate 19 Respiratory Rate 22 Blood Pressure [Left Arm] 125/61 Blood Pressure [Left Arm] 117/66 O2 Sat by Pulse Oximetry 100 O2 Sat by Pulse Oximetry 94 Physical Exam Oriented: Normal Eyes: Normal Ear: Normal Nose: Normal Throat: Normal Respiratory: Normal Cardiovascular: Normal : Normal GI:Auscultation: Normal GI:Palpation: Normal GI: Tenderness: RUQ and Moderate Skin: Normal Musculoskeletal: Normal Psychiatric: Normal Speech Pattern: Clear and Appropriate Laboratory and Diagnostics 07/12/25 05:00 07/12/25 05:00 Labs: Laboratory WBC 6.8 X10^3/uL (3.6-10.0) 07/12/25 05:00 RBC 4.96 X10^6/uL (3.5-5.4) 07/12/25 05:00 Hgb 14.0 g/dL (12.0-16.0) D 07/12/25 05:00 Hct 43.3 % (36.0-47.0) 07/12/25 05:00 MCV 87.3 fL (80.0-100.0) 07/12/25 05:00 MCH 28.1 pg (27.0-34.0) 07/12/25 05:00 MCHC 32.2 g/dL (33.0-35.0) L 07/12/25 05:00 RDW 18.2 % (11.6-16.5) H 07/12/25 05:00 Plt Count 121 X10^3/uL (150.0-450.0) L 07/12/25 05:00 MPV 9.4 fL (7.4-11.0) 07/12/25 05:00 Neut % (Auto) 65.9 % (42.0-75.0) 07/12/25 05:00 Lymph % (Auto) 12.1 % (21.0-51.0) L 07/12/25 05:00 [place] % (Auto) 13.1 % (0.0-13.0) H 07/12/25 05:00 Eos % (Auto) 8.3 % (0.9-2.9) H 07/12/25 05:00 Baso % (Auto) 0.6 % (0.2-1.0) 07/12/25 05:00 Neut # (Auto) 4.5 x10^3/uL (2.2-4.8) 07/12/25 05:00 Lymph # (Auto) 0.8 X10^3/uL (1.3-2.9) L 07/12/25 05:00 [place] # (Auto) 0.9 x10^3/uL (0.3-0.8) H 07/12/25 05:00 Eos # (Auto) 0.6 x10^3/uL (0.0-0.2) H 07/12/25 05:00 Baso # (Auto) 0.0 X10^3/uL (0.0-0.1) 07/12/25 05:00 Absolute Nucleated RBC 0.1 /100WBC 07/12/25 05:00 PT 19.0 SECONDS (11.8-14.3) 07/12/25 06:44 INR Target Range - 07/12/25 06:44 INR 1.57 (0.8-1.3) H 07/12/25 06:44 APTT 60.6 SECONDS (22.9-36.5) H 07/12/25 06:44 PTT Comment - 07/12/25 06:44 Sodium 141 mmol/L (136-145) 07/12/25 05:00 Corrected Sodium TNP 07/12/25 05:00 Potassium 4.1 mmol/L (3.5-5.1) 07/12/25 05:00 Chloride 107 mmol/L (98-107) 07/12/25 05:00 Carbon Dioxide 26.1 mmol/L (21-32) 07/12/25 05:00 BUN 17 mg/dL (7-18) 07/12/25 05:00 Creatinine 1.76 mg/dL (0.55-1.02) H 07/12/25 05:00 Est GFR (MDRD) Af Amer 36 (>60) L 07/12/25 05:00 Est GFR (MDRD) Non-Af 30 (>60) L 07/12/25 05:00 Glucose 67 mg/dL (65-99) 07/12/25 05:00 POC Glucose (mg/dL) 127 mg/dL (65-99) H 07/11/25 08:03 Calcium 8.1 mg/dL (8.5-10.1) L 07/12/25 05:00 Corrected Calcium 8.8 mg/dL (8.5-10.1) 07/12/25 05:00 Magnesium 1.9 mg/dL (2.0-2.9) L 07/12/25 05:00 Total Bilirubin 0.30 mg/dL (0.2-1.0) 07/12/25 05:00 AST 17 Units/L (15-37) 07/12/25 05:00 ALT < 6 Units/L (12-78) L 07/12/25 05:00 Alkaline Phosphatase 97 Units/L (46-116) 07/12/25 05:00 Creatine Kinase 89 Units/L (26-192) 07/09/25 15:01 Troponin I High Sens 6.9 ng/L (4.0-60.0) 07/09/25 15:01 Total Protein 6.3 g/dL (6.4-8.2) L 07/12/25 05:00 Albumin 3.1 g/dL (3.4-5.0) L 07/12/25 05:00 Globulin 3.2 g/dL (2.5-4.5) 07/12/25 05:00 Albumin/Globulin Ratio 1.0 Ratio (1.1-2.1) L 07/12/25 05:00 Lipase 47 Units/L (16-77) 07/09/25 15:01 Assessment and Plan 1: Calculus cholecystitis with distended gallbladder. Laparoscopic cholecystectomy after medical and cardiac clearance. on Monday . 2: Atrial fibrillation and hypertension. 3: Chronic kidney disease, being followed by a patient relations representative. 4: Arthritis, previous knee replacement. Same home medications. Problem Patient Problems: Patient Problems Acute cholecystitis (Acute) K81.0
[2025-07-13 05:57] LABS: MEAN PLATELET VOLUME 9.3 fL (7.4-11.0); RED CELL DISTRIBUTION WIDTH 18.1 % (11.6-16.5)
[2025-07-13 06:04] LABS: INR 1.43 (0.8-1.3)
[2025-07-13 06:14] LABS: COR CA(FOR HYPOALB) 9.1 mg/dL (8.5-10.1); CREATININE 1.77 mg/dL (0.55-1.02); eGFR NON BLACK RACES 29 (>60)
[2025-07-13] MEDS ORDERED: CONSULT PHARMACY - POTASSIUM & MAGNESIUM XX SCH (07:00)
[2025-07-13] MEDS: MAG-OX TAB PO SCH (08:24)
--- NOTE | 2025-07-13 09:23 | DR.PROGNOT ---
HOSPITAL PROGRESS NOTE Progress Note for Day of: Progress Note Date: 07/13/25 Chief Complaint Chief Complaint: 80-year-old female who was admitted with acute cholecystitis, she still complaining of right upper quadrant pain but no nausea or vomiting today .tolerating diet well. no new c/o . WBC 5.3 , plate 121.PT is 17 , INR 1.4, PTT 61. abdome is soft , Flat with RUQ tenderness ,,Pt has long midline incision .. Past Medical Family Social History Past Med/Fam/Surg Hx: No changes since H&P and Changes noted (describe) Allergies: Allergies No Known Drug Allergies Allergy (Verified 07/09/25 14:24) Review Of Systems Changes in ROS: see HPI Vital Signs Vital Signs: Vital Signs Temperature 98.4 F Temperature 97.8 F Pulse Rate [Right] 70 Pulse Rate [Right] 64 Respiratory Rate 19 Respiratory Rate 18 Blood Pressure [Left Arm] 134/67 Blood Pressure [Left Arm] 139/63 O2 Sat by Pulse Oximetry 94 O2 Sat by Pulse Oximetry 98 Physical Exam Oriented: Normal Eyes: Normal Ear: Normal Nose: Normal Throat: Normal Respiratory: Normal Cardiovascular: Normal : Normal GI:Auscultation: Normal GI:Palpation: Normal GI: Tenderness: RUQ and Moderate Skin: Normal Musculoskeletal: Normal Psychiatric: Normal Speech Pattern: Clear and Appropriate Laboratory and Diagnostics 07/13/25 05:03 07/13/25 05:03 Labs: Laboratory WBC 5.5 X10^3/uL (3.6-10.0) 07/13/25 05:03 RBC 3.77 X10^6/uL (3.5-5.4) 07/13/25 05:03 Hgb 11.1 g/dL (12.0-16.0) L D 07/13/25 05:03 Hct 32.7 % (36.0-47.0) L 07/13/25 05:03 MCV 86.8 fL (80.0-100.0) 07/13/25 05:03 MCH 29.4 pg (27.0-34.0) 07/13/25 05:03 MCHC 33.8 g/dL (33.0-35.0) 07/13/25 05:03 RDW 18.1 % (11.6-16.5) H 07/13/25 05:03 Plt Count 166 X10^3/uL (150.0-450.0) 07/13/25 05:03 MPV 9.3 fL (7.4-11.0) 07/13/25 05:03 Neut % (Auto) 72.8 % (42.0-75.0) 07/13/25 05:03 Lymph % (Auto) 12.3 % (21.0-51.0) L 07/13/25 05:03 [place] % (Auto) 9.2 % (0.0-13.0) 07/13/25 05:03 Eos % (Auto) 5.0 % (0.9-2.9) H 07/13/25 05:03 Baso % (Auto) 0.7 % (0.2-1.0) 07/13/25 05:03 Neut # (Auto) 4.0 x10^3/uL (2.2-4.8) 07/13/25 05:03 Lymph # (Auto) 0.7 X10^3/uL (1.3-2.9) L 07/13/25 05:03 [place] # (Auto) 0.5 x10^3/uL (0.3-0.8) 07/13/25 05:03 Eos # (Auto) 0.3 x10^3/uL (0.0-0.2) H 07/13/25 05:03 Baso # (Auto) 0.0 X10^3/uL (0.0-0.1) 07/13/25 05:03 Absolute Nucleated RBC 0.1 /100WBC 07/13/25 05:03 PT 17.6 SECONDS (11.8-14.3) 07/13/25 05:03 INR Target Range - 07/13/25 05:03 INR 1.43 (0.8-1.3) H 07/13/25 05:03 APTT 61.1 SECONDS (22.9-36.5) H 07/13/25 05:03 PTT Comment - 07/13/25 05:03 Sodium 139 mmol/L (136-145) 07/13/25 05:03 Corrected Sodium TNP 07/13/25 05:03 Potassium 4.5 mmol/L (3.5-5.1) 07/13/25 05:03 Chloride 105 mmol/L (98-107) 07/13/25 05:03 Carbon Dioxide 28.6 mmol/L (21-32) 07/13/25 05:03 BUN 15 mg/dL (7-18) 07/13/25 05:03 Creatinine 1.77 mg/dL (0.55-1.02) H 07/13/25 05:03 Est GFR (MDRD) Af Amer 36 (>60) L 07/13/25 05:03 Est GFR (MDRD) Non-Af 29 (>60) L 07/13/25 05:03 Glucose 68 mg/dL (65-99) 07/13/25 05:03 POC Glucose (mg/dL) 127 mg/dL (65-99) H 07/11/25 08:03 Calcium 8.3 mg/dL (8.5-10.1) L 07/13/25 05:03 Corrected Calcium 9.1 mg/dL (8.5-10.1) 07/13/25 05:03 Magnesium 1.9 mg/dL (2.0-2.9) L 07/13/25 05:03 Total Bilirubin 0.30 mg/dL (0.2-1.0) 07/13/25 05:03 AST 21 Units/L (15-37) 07/13/25 05:03 ALT 9 Units/L (12-78) L 07/13/25 05:03 Alkaline Phosphatase 98 Units/L (46-116) 07/13/25 05:03 Creatine Kinase 89 Units/L (26-192) 07/09/25 15:01 Troponin I High Sens 6.9 ng/L (4.0-60.0) 07/09/25 15:01 Total Protein 6.4 g/dL (6.4-8.2) 07/13/25 05:03 Albumin 3.0 g/dL (3.4-5.0) L 07/13/25 05:03 Globulin 3.4 g/dL (2.5-4.5) 07/13/25 05:03 Albumin/Globulin Ratio 0.9 Ratio (1.1-2.1) L 07/13/25 05:03 Lipase 47 Units/L (16-77) 07/09/25 15:01 Assessment and Plan 1: Calculus cholecystitis with distended gallbladder. Laparoscopic cholecystectomy after medical and cardiac clearance and her PT/INR are acceptable .. 2: Atrial fibrillation and hypertension. 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 4: Arthritis, previous knee replacement. Same home medications. 5: coagulopathy 2nd to her medications. Problem Patient Problems: Patient Problems Acute cholecystitis (Acute) K81.0
[2025-07-14] MEDS: HIBICLENS WASH EXT ONE (04:03)
[2025-07-14 05:39] LABS: MEAN PLATELET VOLUME 9.0 fL (7.4-11.0); RED CELL DISTRIBUTION WIDTH 17.7 % (11.6-16.5)
[2025-07-14 05:47] LABS: INR 1.21 (0.8-1.3)
[2025-07-14 05:58] LABS: COR CA(FOR HYPOALB) 9.2 mg/dL (8.5-10.1); CREATININE 1.56 mg/dL (0.55-1.02); eGFR NON BLACK RACES 34 (>60)
[2025-07-14] MEDS ORDERED: CONSULT PHARMACY - POTASSIUM & MAGNESIUM XX SCH (07:00)
[2025-07-14] MEDS: MAGNESIUM SULFATE 1 GRAM/100 mL PREMIX 1 G/100 ML BAG IV SCH (08:04)
[2025-07-14] MEDS ORDERED: MAG-OX TAB PO SCH (09:00)
[2025-07-14] MEDS: ZOFRAN INJ 4 MG VIAL ONE (09:09)
[2025-07-14] MEDS: VERSED ONE (09:09)
[2025-07-14] MEDS: FENTANYL VIAL INJ 100 mcg ONE (09:09)
[2025-07-14] MEDS: PEPCID 20 MG VIAL ONE (09:11)
[2025-07-14] MEDS: OFIRMEV IV 1000 MG VIAL 1,000 MG/100 ML VIAL IV ONE (09:13)
[2025-07-14] MEDS: ZEMURON 100 MG VIAL ONE (09:13)
[2025-07-14] MEDS: DIPRIVAN VIAL 20 ML ONE (09:13)
[2025-07-14] MEDS: BRIDION ONE (09:13)
[2025-07-14] MEDS: LR 1,000 ML IV 500 ML IV PRN (09:15)
[2025-07-14] MEDS: LR 1,000 ML IV 1,000 ML IV ONE (09:15)
[2025-07-14] MEDS: VERSED IVP PRN (09:21)
[2025-07-14] MEDS: ZOFRAN INJ 4 MG VIAL IVP PRN (09:22)
[2025-07-14] MEDS: PEPCID 20 MG VIAL IVP PRN (09:23)
[2025-07-14] MEDS: NS 100 ML IV 100 ML ONE (09:25)
[2025-07-14] MEDS: ANCEF VIAL 1 GRAM ONE (09:25)
[2025-07-14] MEDS: ANCEF VIAL 1 GRAM IV PRN (09:26)
[2025-07-14] MEDS ORDERED: XYLOCAINE 2 % (PLAIN) PRN ×2 (09:37→10:30)
[2025-07-14] MEDS: FENTANYL VIAL INJ 100 mcg IVP PRN (09:37)
[2025-07-14] MEDS: DECADRON INJ ONE (09:38)
[2025-07-14] MEDS: ZEMURON 100 MG VIAL IVP PRN (09:39)
[2025-07-14] MEDS: LUBIFRESH PM EYE OINTMENT ONE (09:44)
[2025-07-14] MEDS: BACTROBAN TOPICAL OINT ONE (09:45)
[2025-07-14] MEDS: MARCAINE 0.5% ONE (09:45)
[2025-07-14] MEDS: DECADRON INJ IVP PRN (09:46)
[2025-07-14] MEDS: EPHEDRINE SULFATE INJ ONE (09:49)
[2025-07-14] MEDS: EPHEDRINE SULFATE INJ IVP PRN (09:51)
[2025-07-14] MEDS: DIPRIVAN VIAL 200 ML IVP PRN (09:54)
[2025-07-14] MEDS ORDERED: LUBIFRESH PM EYE OINTMENT PRN (09:55)
[2025-07-14] MEDS: OFIRMEV IV 1000 MG VIAL 1,000 MG/100 ML VIAL IV PRN (10:00)
[2025-07-14] MEDS: PRECEDEX INJ VIAL IVP PRN (10:22)
[2025-07-14] MEDS: BRIDION IVP PRN (10:29)
[2025-07-14] MEDS ORDERED: DILAUDID INJ IVP PRN (10:58)
[2025-07-14] MEDS ORDERED: ZOFRAN INJ 4 MG VIAL IVP PRN (10:58)
[2025-07-14] MEDS ORDERED: BENADRYL INJ 50 MG VIAL IVP PRN (10:58)
[2025-07-14] MEDS ORDERED: STERILE WATER IRRIGATION IR ONE ×2 (11:30)
[2025-07-14] MEDS: LEVAQUIN PREMIX IV 500 MG 500 MG/100 ML BAG IV NR (12:38)
[2025-07-14 20:25] VITALS: RESP 18
[2025-07-15 05:50] LABS: MEAN PLATELET VOLUME 9.5 fL (7.4-11.0); RED CELL DISTRIBUTION WIDTH 17.4 % (11.6-16.5)
[2025-07-15 06:01] LABS: COR CA(FOR HYPOALB) 9.6 mg/dL (8.5-10.1); CREATININE 1.44 mg/dL (0.55-1.02); eGFR NON BLACK RACES 37 (>60)
[2025-07-15 08:01] VITALS: BP 145/63; PULSE 78; TEMP 98.2; O2SAT 96
[2025-07-15] MEDS: PROTONIX INJ 40 MG VIAL IVP SCH (08:21)
[2025-07-15] MEDS: LEVAQUIN PREMIX IV 250 MG 250 MG/50 ML BAG IV SCH (08:22)
--- NOTE | 2025-07-15 10:08 | PCM.PROG ---
Progress Note Progress Note for Day of Date of Exam: 07/15/25 Subjective Subjective: Patient seen at bedside, no acute events overnight. She had laparoscopic cholecystectomy yesterday. She is doing well, tolerating p.o. intake. She is stable to be discharged home today. Labs/imaging reviewed: WBC 8.6 hemoglobin 10.6 potassium 4.5 creatinine 1.44 Plan: Discharge home today. Follow-up with surgery and PCP as scheduled. Past Medical Family Social History Past Med/Fam/Surg Hx: No changes since H&P and Changes noted (describe) Allergies: Allergies No Known Drug Allergies Allergy (Verified 07/09/25 14:24) Vital Signs and I&O's Vital Signs: Vital Signs Temperature 98.2 F Temperature 98.3 F Pulse Rate [Right] 78 Pulse Rate [Right] 67 Respiratory Rate 18 Respiratory Rate 18 Blood Pressure [Right Arm] 145/63 Blood Pressure [Right Arm] 122/67 O2 Sat by Pulse Oximetry 96 O2 Sat by Pulse Oximetry 94 Intake and Output: Intake & Output 07/12/25 07/13/25 07/14/25 07/15/25 23:59 23:59 23:59 23:59 Intake Total 2468 / 2468 2292 / 2292 4686 / 4686 718 / 718 Output Total 575 / 575 Balance 2468 / 2468 2292 / 2292 4111 / 4111 718 / 718 Physical Exam Oriented: Normal Eyes: Normal Ear: Normal Nose: Normal Throat: Normal Respiratory: Normal Cardiovascular: Normal Auscultation: Bowel Sounds: Normal Palpation: Normal Tenderness: Periumbilical and Mild Skin: Normal Musculoskeletal: Normal Psychiatric: Normal Mood Description: Calm Speech Pattern: Clear and Appropriate Laboratory and Diagnostics 07/15/25 05:11 07/15/25 05:11 Labs: Laboratory WBC 8.6 X10^3/uL (3.6-10.0) 07/15/25 05:11 RBC 3.60 X10^6/uL (3.5-5.4) 07/15/25 05:11 Hgb 10.6 g/dL (12.0-16.0) L 07/15/25 05:11 Hct 31.1 % (36.0-47.0) L 07/15/25 05:11 MCV 86.2 fL (80.0-100.0) 07/15/25 05:11 MCH 29.4 pg (27.0-34.0) 07/15/25 05:11 MCHC 34.1 g/dL (33.0-35.0) 07/15/25 05:11 RDW 17.4 % (11.6-16.5) H 07/15/25 05:11 Plt Count 178 X10^3/uL (150.0-450.0) 07/15/25 05:11 MPV 9.5 fL (7.4-11.0) 07/15/25 05:11 Neut % (Auto) 75.2 % (42.0-75.0) H 07/15/25 05:11 Lymph % (Auto) 13.0 % (21.0-51.0) L 07/15/25 05:11 [place] % (Auto) 11.3 % (0.0-13.0) 07/15/25 05:11 Eos % (Auto) 0.1 % (0.9-2.9) L 07/15/25 05:11 Baso % (Auto) 0.4 % (0.2-1.0) 07/15/25 05:11 Neut # (Auto) 6.5 x10^3/uL (2.2-4.8) H 07/15/25 05:11 Lymph # (Auto) 1.1 X10^3/uL (1.3-2.9) L 07/15/25 05:11 [place] # (Auto) 1.0 x10^3/uL (0.3-0.8) H 07/15/25 05:11 Eos # (Auto) 0.0 x10^3/uL (0.0-0.2) 07/15/25 05:11 Baso # (Auto) 0.0 X10^3/uL (0.0-0.1) 07/15/25 05:11 Absolute Nucleated RBC 0.0 /100WBC 07/15/25 05:11 PT 15.4 SECONDS (11.8-14.3) 07/14/25 05:15 INR Target Range - 07/14/25 05:15 INR 1.21 (0.8-1.3) 07/14/25 05:15 APTT 43.2 SECONDS (22.9-36.5) H 07/14/25 05:15 PTT Comment - 07/14/25 05:15 Sodium 139 mmol/L (136-145) 07/15/25 05:11 Corrected Sodium TNP 07/15/25 05:11 Potassium 4.5 mmol/L (3.5-5.1) 07/15/25 05:11 Chloride 103 mmol/L (98-107) 07/15/25 05:11 Carbon Dioxide 27.8 mmol/L (21-32) 07/15/25 05:11 BUN 13 mg/dL (7-18) 07/15/25 05:11 Creatinine 1.44 mg/dL (0.55-1.02) H 07/15/25 05:11 Est GFR (MDRD) Af Amer 45 (>60) L 07/15/25 05:11 Est GFR (MDRD) Non-Af 37 (>60) L 07/15/25 05:11 Glucose 86 mg/dL (65-99) 07/15/25 05:11 POC Glucose (mg/dL) 127 mg/dL (65-99) H 07/11/25 08:03 Calcium 8.6 mg/dL (8.5-10.1) 07/15/25 05:11 Corrected Calcium 9.6 mg/dL (8.5-10.1) 07/15/25 05:11 Magnesium 1.9 mg/dL (2.0-2.9) L 07/14/25 05:15 Total Bilirubin 0.20 mg/dL (0.2-1.0) 07/15/25 05:11 AST 30 Units/L (15-37) 07/15/25 05:11 ALT 13 Units/L (12-78) 07/15/25 05:11 Alkaline Phosphatase 97 Units/L (46-116) 07/15/25 05:11 Creatine Kinase 89 Units/L (26-192) 07/09/25 15:01 Troponin I High Sens 6.9 ng/L (4.0-60.0) 07/09/25 15:01 Total Protein 6.1 g/dL (6.4-8.2) L 07/15/25 05:11 Albumin 2.8 g/dL (3.4-5.0) L 07/15/25 05:11 Globulin 3.3 g/dL (2.5-4.5) 07/15/25 05:11 Albumin/Globulin Ratio 0.8 Ratio (1.1-2.1) L 07/15/25 05:11 Lipase 47 Units/L (16-77) 07/09/25 15:01 Plan (1) Acute cholecystitis: Status: Acute (2) Atrial fibrillation: Status: Chronic (3) Renal insufficiency: Status: Chronic (4) Hypertension: Status: Chronic
[2025-07-15] MEDS: ULTRAM PO PRN (10:21)
[2025-07-16] MEDS ORDERED: VITAMIN D (1.25MG) PO SCH (09:00)
== END 2025-07-15 11:20 | disposition home or self-care (01) ==
LOC: ER 14:10 → MED/SURG 14:10 → INTOOBSV 17:11 → OBSVTOIN 17:11 → MED/SURG 17:21
PROVIDERS: ADMIT Surgery; ATTEND Surgery

== ENCOUNTER 2025-10-27 15:55 | Observation (INO) ==
[2025-10-27 16:33] VITALS: BMI 29.4
[2025-10-27 17:32] LABS: MEAN PLATELET VOLUME 7.9 fL (7.4-11.0); RED CELL DISTRIBUTION WIDTH 15.4 % (11.6-16.5)
[2025-10-27 17:40] LABS: COR CA(FOR HYPOALB) 9.0 mg/dL (8.5-10.1); CREATININE 2.93 mg/dL (0.55-1.02); eGFR NON BLACK RACES 16 (>60)
--- NOTE | 2025-10-27 17:40 | DR.DIZZY ---
HPI Time seen Time Seen by Provider: 10/27/25 16:03 PCP Primary Care Physician: Cherie Dangelo NP Complaint Chief Complaint Doctor Comments: 80-year-old female presents to the ER with complaint of feeling generalized weak with some shortness of breath and dizziness. Chief Complaint:: Patient c/o dizziness, weakness, shortness of breath and left sided head pain x1 week. Daughter states that patient "passed out" but patient did not have LOC or pass out. she was weak when getting in the car and fell to the ground. denies injuries. COVID-19 Coronavirus risk:travel/contact w/high risk person: No Has patient experienced Coronavirus symptoms: No Source History Provided: Patient and Family Member Mode of Arrival Mode of Arrival: Wheelchair Timing Onset of Chief Complaint: 10/20/25 PMH PMH Past Medical History: Yes Past Medical History: Arthritis, Hypertension and Renal Disease Past Medical History Comment: AFIB Past Surgical History: Yes Surgical History: Cholecystectomy, Hysterectomy, Ortho Surgery, Weight Loss Surgery and Other Past Surgical History Comment: pacemaker, right knee replacement Family History History of Family Medical Conditions: Yes Family Medical History: Diabetes Mellitus, Cancer, [place], Coronary Artery Disease, Heart Failure, Sudden Cardiac and Hypertension Social History Type of Tobacco Use: None Alcohol Use: None Do you use any recreational Drugs:: No Lives With: Family Lives Where: Home Travel Risk Coronavirus risk:travel/contact w/high risk person: No Has patient experienced Coronavirus symptoms: No Infectious screening Have you traveled outside the country in the last 6 months?: No Isolation: Standard PE Vital Signs Vitals: Vital Signs Temperature 97.3 F Pulse Rate [Standing] 75 Pulse Rate [Sitting] 71 Pulse Rate [Lying] 69 Pulse Rate 69 Pulse Rate 75 Pulse Rate 69 Pulse Rate 69 Pulse Rate 69 Pulse Rate 69 Pulse Rate 69 Pulse Rate 69 Pulse Rate 69 Pulse Rate 69 Pulse Rate 69 Pulse Rate 69 Pulse Rate 72 Respiratory Rate 20 Respiratory Rate 19 Respiratory Rate 17 Respiratory Rate 18 Respiratory Rate 19 Respiratory Rate 13 Respiratory Rate 19 Respiratory Rate 13 Respiratory Rate 21 Respiratory Rate 16 Respiratory Rate 24 Respiratory Rate 21 Respiratory Rate 18 Blood Pressure [Standing] 86/51 Blood Pressure [Sitting] 92/51 Blood Pressure [Lying] 99/54 Blood Pressure 113/56 Blood Pressure 99/54 Blood Pressure 94/52 Blood Pressure 94/53 Blood Pressure 114/57 Blood Pressure 78/51 O2 Sat by Pulse Oximetry 100 O2 Sat by Pulse Oximetry 100 O2 Sat by Pulse Oximetry 100 O2 Sat by Pulse Oximetry 96 O2 Sat by Pulse Oximetry 98 O2 Sat by Pulse Oximetry 99 O2 Sat by Pulse Oximetry 95 O2 Sat by Pulse Oximetry 100 O2 Sat by Pulse Oximetry 100 O2 Sat by Pulse Oximetry 99 O2 Sat by Pulse Oximetry 95 ROR Labs Reviewed Laboratory Results Reviewed?: Yes 10/28/25 05:09 10/28/25 05:09 Laboratory: WBC 8.0 X10^3/uL (3.6-10.0) 10/27/25 16:20 RBC 3.22 X10^6/uL (3.5-5.4) L 10/27/25 16:20 Hgb 10.0 g/dL (12.0-16.0) L 10/27/25 16:20 Hct 29.8 % (36.0-47.0) L 10/27/25 16:20 MCV 92.5 fL (80.0-100.0) 10/27/25 16:20 MCH 31.0 pg (27.0-34.0) 10/27/25 16:20 MCHC 33.5 g/dL (33.0-35.0) 10/27/25 16:20 RDW 15.4 % (11.6-16.5) 10/27/25 16:20 Plt Count 257 X10^3/uL (150.0-450.0) 10/27/25 16:20 MPV 7.9 fL (7.4-11.0) 10/27/25 16:20 Neut % (Auto) 70.6 % (42.0-75.0) 10/27/25 16:20 Lymph % (Auto) 18.0 % (21.0-51.0) L 10/27/25 16:20 [place] % (Auto) 5.4 % (0.0-13.0) 10/27/25 16:20 Eos % (Auto) 5.0 % (0.9-2.9) H 10/27/25 16:20 Baso % (Auto) 1.0 % (0.2-1.0) 10/27/25 16:20 Neut # (Auto) 5.6 x10^3/uL (2.2-4.8) H 10/27/25 16:20 Lymph # (Auto) 1.4 X10^3/uL (1.3-2.9) 10/27/25 16:20 [place] # (Auto) 0.4 x10^3/uL (0.3-0.8) 10/27/25 16:20 Eos # (Auto) 0.4 x10^3/uL (0.0-0.2) H 10/27/25 16:20 Baso # (Auto) 0.1 X10^3/uL (0.0-0.1) 10/27/25 16:20 Absolute Nucleated RBC 0.0 /100WBC 10/27/25 16:20 Sodium 137 mmol/L (136-145) 10/27/25 16:20 Corrected Sodium TNP 10/27/25 16:20 Potassium 3.4 mmol/L (3.5-5.1) L 10/27/25 16:20 Chloride 100 mmol/L (98-107) 10/27/25 16:20 Carbon Dioxide 27.4 mmol/L (21-32) 10/27/25 16:20 BUN 23 mg/dL (7-18) H 10/27/25 16:20 Creatinine 2.93 mg/dL (0.55-1.02) H 10/27/25 16:20 Est GFR (MDRD) Af Amer 20 (>60) L 10/27/25 16:20 Est GFR (MDRD) Non-Af 16 (>60) L 10/27/25 16:20 Glucose 57 mg/dL (65-99) L 10/27/25 16:20 Calcium 7.9 mg/dL (8.5-10.1) L 10/27/25 16:20 Corrected Calcium 9.0 mg/dL (8.5-10.1) 10/27/25 16:20 Total Bilirubin 0.30 mg/dL (0.2-1.0) 10/27/25 16:20 AST 26 Units/L (15-37) 10/27/25 16:20 ALT 12 Units/L (12-78) 10/27/25 16:20 Alkaline Phosphatase 82 Units/L (46-116) 10/27/25 16:20 Troponin I High Sens 8.7 ng/L (4.0-60.0) 10/27/25 19:52 B-Natriuretic Peptide 267 pg/mL (0-79) H 10/27/25 16:20 Total Protein 5.9 g/dL (6.4-8.2) L 10/27/25 16:20 Albumin 2.6 g/dL (3.4-5.0) L 10/27/25 16:20 Globulin 3.3 g/dL (2.5-4.5) 10/27/25 16:20 Albumin/Globulin Ratio 0.8 Ratio (1.1-2.1) L 10/27/25 16:20 Specimen Type Clean catch urine 10/27/25 19:19 Urine Color Yellow (YELLOW) 10/27/25 19:19 Urine Appearance Clear (CLEAR) 10/27/25 19:19 Urine pH 6.0 (5.0 - 8.0) 10/27/25 19:19 Ur Specific [place] 1.020 (1.000-1.030) 10/27/25 19:19 Urine Protein Negative (NEGATIVE) 10/27/25 19:19 Urine Glucose (UA) Negative (NEGATIVE) 10/27/25 19:19 Urine Ketones Negative (NEGATIVE) 10/27/25 19:19 Urine Blood Negative (NEGATIVE) 10/27/25 19:19 Urine Nitrite Negative (NEGATIVE) 10/27/25 19:19 Urine Bilirubin Negative (NEGATIVE) 10/27/25 19:19 Urine Urobilinogen Normal (NORMAL) 10/27/25 19:19 Ur Leukocyte Esterase 2+ (NEGATIVE) 10/27/25 19:19 Urine RBC 0-2 /HPF (0-3) 10/27/25 19:19 Urine WBC 3-5 /HPF (0-5) 10/27/25 19:19 Ur Squamous Epith Cells Many /HPF (NEGATIVE) 10/27/25 19:19 Urine Bacteria 1+ /HPF (NEGATIVE) 10/27/25 19:19 Ur Culture Indicated? No/not indicated 10/27/25 19:19 XRAY XRAY Interpreted by: Radiologist and Self X-ray Results: See Reports EKG Rate: 73 Opioid Opioid Risk Tool Age (Carl box if 16-45): No History of Preadolescent Sexual Abuse: No Total: 0 Total Score Risk Category: Low Risk Copyright: Melo SHELTON predicting aberrant behaviors Discharge Plan Diagnosis Discharge Problem: Dizziness CHF (congestive heart failure) Qualifiers: Heart failure chronicity: chronic Acute renal failure (ARF) Qualifiers: Acute renal failure type: unspecified Qualified Code(s): N17.9 - Acute kidney failure, unspecified Discharge Plan Patient Disposition: 09 ADMITTED INPATIENT Condition: Stable
[2025-10-27] MEDS ORDERED: NS 1,000 ML IV 1,000 ML ONE (18:11)
[2025-10-27] MEDS: NS 1,000 ML IV 1,000 ML IV ONE (18:16)
--- NOTE | 2025-10-27 19:20 | EKG ---
Test Reason : syncope Blood Pressure : */* mmHG Vent. Rate : 73 BPM Atrial Rate : 73 BPM P-R Int : 266 ms QRS Dur : 78 ms QT Int : 428 ms P-R-T Axes : * 42 -70 degrees QTc Int : 471 ms Atrial-paced rhythm with prolonged AV conduction Low voltage QRS Nonspecific T wave abnormality Abnormal ECG When compared with ECG of 09-JUL-2025 19:55, No significant change was found Confirmed by Jone Aldrich MD ([id number]) on 10/28/2025 7:34:46 AM Referred By: Confirmed By: Jone Aldrich MD
[2025-10-27 19:52] LABS: BLOOD/HEMOGLOBIN,URINE NEGATIVE (NEGATIVE); LEUKOCYTE ESTERASE ,URINE 2+ (NEGATIVE); NITRITES,URINE NEGATIVE (NEGATIVE)
[2025-10-27 19:54] LABS: APPEARANCE,URINE CLEAR (CLEAR)
[2025-10-27 20:05] LABS: SQUAMOUS EPITHELIAL CELL,UR MANY /HPF (NEGATIVE)
--- NOTE | 2025-10-27 20:15 | CT ---
EXAM: CT HEAD WITHOUT IV CONTRAST HISTORY: Dizziness COMPARISON: None . TECHNIQUE: Axial images were acquired of the head without IV contrast. Coronal and sagittal images were provided. All images were reviewed in a variety of windows and levels. LIMITATIONS: Please note that CT has low sensitivity and accuracy for identifying acute infarction. In addition, there are portions of the brain that are affected by beam hardening artifact which further greatly limits identification of an acute infarct. RADIATION REDUCTION TECHNIQUE: Automated exposure control, Adjustment of the mA and/or kV according to patient size, or iterative reconstruction techniques were used. FINDINGS: There is diffuse cerebral atrophy with a regional distribution of low attenuation along the periventricular white matter most likely representing small vessel ischemic changes which are to a degree that would be considered within normal limits for the patient's stated age. There is no evidence of an acute intracranial bleed. There is no evidence of a mass or midline shift. There is no evidence of an extra-axial fluid collection. The bravo-white matter differentiation is within normal limits. The visualized bones are unremarkable. The visualized sinuses are clear. The mastoid air cells are well-aerated. IMPRESSION: 1. INVOLUTIONAL CHANGES ARE PRESENT WITH FINDINGS SUGGESTING SMALL VESSEL ISCHEMIC DISEASE WHICH IS TO A DEGREE THAT WOULD BE CONSIDERED WITHIN NORMAL LIMITS FOR THE PATIENT'S STATED AGE. 2. THERE IS NO EVIDENCE OF ACUTE INTRACRANIAL BLEED. THIS IS AN ELECTRONICALLY VERIFIED FINAL REPORT 10/27/2025 8:12 PM - Electronically signed by Mau Thomas MD
[2025-10-27] MEDS ORDERED: PATIENT'S HOME MEDICATION (Alprazolam 0.25 mg tablet) PO PRN (23:50)
[2025-10-27] MEDS ORDERED: NORCO 5/325 MG TAB PO PRN (23:50)
[2025-10-27] MEDS ORDERED: ZOFRAN INJ 4 MG VIAL IVP PRN (23:50)
[2025-10-27] MEDS ORDERED: NovoLIN R (or HumuLIN R) SUBCUT PRN (23:50)
[2025-10-27] MEDS ORDERED: TYLENOL 325 MG TAB PO PRN (23:50)
[2025-10-27] MEDS ORDERED: CONSULT PHARMACY - POTASSIUM & MAGNESIUM XX SCH (23:50)
[2025-10-27] MEDS ORDERED: ULTRAM PO PRN (23:50)
[2025-10-27] MEDS ORDERED: MORPHINE SULFATE INJ 2 MG INJ IVP PRN (23:50)
[2025-10-28] MEDS: NS 1,000 ML IV 1,000 ML IV SCH (00:04)
--- NOTE | 2025-10-28 01:23 | EKG ---
Test Reason : syncope Blood Pressure : */* mmHG Vent. Rate : 60 BPM Atrial Rate : 60 BPM P-R Int : 256 ms QRS Dur : 78 ms QT Int : 496 ms P-R-T Axes : 96 23 -72 degrees QTc Int : 496 ms Atrial-paced rhythm with prolonged AV conduction Prolonged QT Abnormal ECG When compared with ECG of 27-OCT-2025 19:18, (Unconfirmed) No significant change was found Confirmed by Jone Aldrich MD ([id number]) on 10/28/2025 7:34:42 AM Referred By: Confirmed By: Jone Aldrich MD
[2025-10-28 05:36] LABS: MEAN PLATELET VOLUME 7.5 fL (7.4-11.0); RED CELL DISTRIBUTION WIDTH 15.4 % (11.6-16.5)
[2025-10-28] MEDS ORDERED: ALPRAZOLAM ODT PO PRN (05:41)
[2025-10-28 05:46] LABS: COR CA(FOR HYPOALB) 9.2 mg/dL (8.5-10.1); CREATININE 2.58 mg/dL (0.55-1.02); eGFR NON BLACK RACES 19 (>60)
--- NOTE | 2025-10-28 06:40 | EKG ---
Test Reason : syncope Blood Pressure : */* mmHG Vent. Rate : 71 BPM Atrial Rate : 71 BPM P-R Int : 276 ms QRS Dur : 84 ms QT Int : 442 ms P-R-T Axes : * 44 -69 degrees QTc Int : 480 ms Atrial-paced rhythm with prolonged AV conduction Nonspecific T wave abnormality Abnormal ECG When compared with ECG of 28-OCT-2025 01:19, (Unconfirmed) No significant change was found Confirmed by Jone Aldrich MD ([id number]) on 10/28/2025 7:34:31 AM Referred By: Confirmed By: Jone Aldrich MD
[2025-10-28] MEDS ORDERED: CONSULT PHARMACY - POTASSIUM & MAGNESIUM XX SCH (07:00)
--- NOTE | 2025-10-28 07:20 | RAD ---
EXAM: Portable chest HISTORY: Shortness of breath COMPARISON: 07/10/2025 FINDINGS: There is a pacemaker present on the left obscuring a portion of the left mid lung. Heart is enlarged. No congestive heart failure is noted. Lungs are mildly hyperinflated but free of acute infiltrates. No pneumothorax or pleural effusions identified. Bony thorax is unremarkable. IMPRESSION: Lungs are mildly hyperinflated but free of acute infiltrates Mild cardiomegaly without congestive heart failure THIS IS AN ELECTRONICALLY VERIFIED FINAL REPORT 10/28/2025 7:17 AM - Electronically signed by Neftaly Miranda MD
[2025-10-28 08:05] VITALS: PULSE 70; RESP 18
--- NOTE | 2025-10-28 08:06 | RAD ---
EXAM: CHEST, 1 VIEW HISTORY: NEAR SYNCOPE; HTN, RENAL DISEASE, AFIB SX: SHAWNA, HYST, ORTHO, WLS, PACEMAKER, RIGHT KNEE REPLACEMENT COMPARISON: No relevant prior studies were available for comparison at the time of interpretation. TECHNIQUE: CHEST, 1 VIEW FINDINGS: Chest: Lines and tubes: Left-sided pacemaker generator with lead or leads in satisfactory position. Mediastinum: Cardiomegaly. Pulmonary vessels: There is pulmonary vascular congestion. Lung bernal: Patchy opacities are seen Pleura: No effusion. No pneumothorax. Bones and soft tissues: No acute osseous or soft tissue abnormality. IMPRESSION: 1. Findings suggest increased volume status THIS IS AN ELECTRONICALLY VERIFIED FINAL REPORT 10/28/2025 8:03 AM - Electronically signed by Zain Jaime MD
--- NOTE | 2025-10-28 08:31 | DR.DIZZY ---
HPI Time seen Time Seen by Provider: 10/27/25 16:03 PCP Primary Care Physician: Cherie Dangelo Complaint Chief Complaint Doctor Comments: Patient states she is SOB, dizzy and weak for 1 week. Daughter states patient almost passed out but not LOC Chief Complaint:: Patient c/o dizziness, weakness, shortness of breath and left sided head pain x1 week. Daughter states that patient "passed out" but patient did not have LOC or pass out. she was weak when getting in the car and fell to the ground. denies injuries. COVID-19 Coronavirus risk:travel/contact w/high risk person: No Has patient experienced Coronavirus symptoms: No Nurses Notes Reviewed Nurses Notes Review: Yes Source History Provided: Patient and Family Member Mode of Arrival Mode of Arrival: Wheelchair Timing Onset of Chief Complaint: 10/20/25 PMH PMH Past Medical History: Yes Past Medical History: Arthritis, Hypertension and Renal Disease Past Medical History Comment: AFIB Past Surgical History: Yes Surgical History: Cholecystectomy, Ortho Surgery, Weight Loss Surgery and Other Past Surgical History Comment: pacemaker, right knee replacement Family History History of Family Medical Conditions: Yes Family Medical History: Diabetes Mellitus, [place], Coronary Artery Disease and Sudden Cardiac Social History Does patient currently use any type of tobacco product: No Type of Tobacco Use: None Alcohol Use: None Do you use any recreational Drugs:: No Lives With: Family Lives Where: Home Travel Risk Coronavirus risk:travel/contact w/high risk person: No Has patient experienced Coronavirus symptoms: No Infectious screening Have you traveled outside the country in the last 6 months?: No Isolation: Standard ROS Review of Systems Constitutional: No Symptoms Reported Eyes: No Symptoms Reported ENTM: No Symptoms Reported Respiratoy: See HPI and Short of Breath Cardiovascular: No Symptoms Reported Gastrointestinal/Abdominal: No Symptoms Reported Genitourinary: No Symptoms Reported Neurological: See HPI, Headache, Weakness and Dizziness Musculoskeletal: No Symptoms Reported Integumentary: No Symptoms Reported Hematologic/Lymphatic: No Symptoms Reported Endocrine: No Symptoms Reported Psychiatric: No Symptoms Reported All Other Systems: Reviewed and Negative PE General Limitations: No Limitations General Appearance: Alert and In No Apparent Distress Head Head Exam: Normal Inspection Eyes Eye exam: Normal Appearance ENT ENT Exam: Normal Exam, Normal Oropharynx and Normal External Ear Exam Neck Neck Exam: Normal Inspection and Full ROM Chest Chest Inspection: Normal Inspection Respiratory Respiratory Exam: Normal Lung Sounds Bilat Cardiovascular Cardiovascular Exam: Regular Rate and Normal Rhythm Abdominal Exam Abdominal Exam: Normal Inspection, Normal Bowel Sounds and Soft Rectal Rectal Exam: Deferred Extremeties Extremities Exam: Normal Inspection and Full ROM Back Back Exam: Normal Inspection and Full ROM Neurologic Neurological Exam: Alert and Oriented X3 Psychiatric Psychiatric Exam: Normal Affect and Normal Mood Skin Skin Exam: Warm, Dry, Intact and Normal Color MDM Additional Information Obtained Additional Information Obtained From: Old Records COURSE Reevaluation 1st: Unchanged 2nd: Improved Consultation Called: 20:30 Consultation Comments: Spoke with Dr Cardenas agree to admit patient ROR Labs Reviewed Laboratory Results Reviewed?: Yes 10/28/25 05:09 10/28/25 05:09 Laboratory: WBC 8.0 X10^3/uL (3.6-10.0) 10/27/25 16:20 RBC 3.22 X10^6/uL (3.5-5.4) L 10/27/25 16:20 Hgb 10.0 g/dL (12.0-16.0) L 10/27/25 16:20 Hct 29.8 % (36.0-47.0) L 10/27/25 16:20 MCV 92.5 fL (80.0-100.0) 10/27/25 16:20 MCH 31.0 pg (27.0-34.0) 10/27/25 16:20 MCHC 33.5 g/dL (33.0-35.0) 10/27/25 16:20 RDW 15.4 % (11.6-16.5) 10/27/25 16:20 Plt Count 257 X10^3/uL (150.0-450.0) 10/27/25 16:20 MPV 7.9 fL (7.4-11.0) 10/27/25 16:20 Neut % (Auto) 70.6 % (42.0-75.0) 10/27/25 16:20 Lymph % (Auto) 18.0 % (21.0-51.0) L 10/27/25 16:20 [place] % (Auto) 5.4 % (0.0-13.0) 10/27/25 16:20 Eos % (Auto) 5.0 % (0.9-2.9) H 10/27/25 16:20 Baso % (Auto) 1.0 % (0.2-1.0) 10/27/25 16:20 Neut # (Auto) 5.6 x10^3/uL (2.2-4.8) H 10/27/25 16:20 Lymph # (Auto) 1.4 X10^3/uL (1.3-2.9) 10/27/25 16:20 [place] # (Auto) 0.4 x10^3/uL (0.3-0.8) 10/27/25 16:20 Eos # (Auto) 0.4 x10^3/uL (0.0-0.2) H 10/27/25 16:20 Baso # (Auto) 0.1 X10^3/uL (0.0-0.1) 10/27/25 16:20 Absolute Nucleated RBC 0.0 /100WBC 10/27/25 16:20 Sodium 137 mmol/L (136-145) 10/27/25 16:20 Corrected Sodium TNP 10/27/25 16:20 Potassium 3.4 mmol/L (3.5-5.1) L 10/27/25 16:20 Chloride 100 mmol/L (98-107) 10/27/25 16:20 Carbon Dioxide 27.4 mmol/L (21-32) 10/27/25 16:20 BUN 23 mg/dL (7-18) H 10/27/25 16:20 Creatinine 2.93 mg/dL (0.55-1.02) H 10/27/25 16:20 Est GFR (MDRD) Af Amer 20 (>60) L 10/27/25 16:20 Est GFR (MDRD) Non-Af 16 (>60) L 10/27/25 16:20 Glucose 57 mg/dL (65-99) L 10/27/25 16:20 Calcium 7.9 mg/dL (8.5-10.1) L 10/27/25 16:20 Corrected Calcium 9.0 mg/dL (8.5-10.1) 10/27/25 16:20 Total Bilirubin 0.30 mg/dL (0.2-1.0) 10/27/25 16:20 AST 26 Units/L (15-37) 10/27/25 16:20 ALT 12 Units/L (12-78) 10/27/25 16:20 Alkaline Phosphatase 82 Units/L (46-116) 10/27/25 16:20 Troponin I High Sens 8.7 ng/L (4.0-60.0) 10/27/25 19:52 B-Natriuretic Peptide 267 pg/mL (0-79) H 10/27/25 16:20 Total Protein 5.9 g/dL (6.4-8.2) L 10/27/25 16:20 Albumin 2.6 g/dL (3.4-5.0) L 10/27/25 16:20 Globulin 3.3 g/dL (2.5-4.5) 10/27/25 16:20 Albumin/Globulin Ratio 0.8 Ratio (1.1-2.1) L 10/27/25 16:20 Specimen Type Clean catch urine 10/27/25 19:19 Urine Color Yellow (YELLOW) 10/27/25 19:19 Urine Appearance Clear (CLEAR) 10/27/25 19:19 Urine pH 6.0 (5.0 - 8.0) 10/27/25 19:19 Ur Specific [place] 1.020 (1.000-1.030) 10/27/25 19:19 Urine Protein Negative (NEGATIVE) 10/27/25 19:19 Urine Glucose (UA) Negative (NEGATIVE) 10/27/25 19:19 Urine Ketones Negative (NEGATIVE) 10/27/25 19:19 Urine Blood Negative (NEGATIVE) 10/27/25 19:19 Urine Nitrite Negative (NEGATIVE) 10/27/25 19:19 Urine Bilirubin Negative (NEGATIVE) 10/27/25 19:19 Urine Urobilinogen Normal (NORMAL) 10/27/25 19:19 Ur Leukocyte Esterase 2+ (NEGATIVE) 10/27/25 19:19 Urine RBC 0-2 /HPF (0-3) 10/27/25 19:19 Urine WBC 3-5 /HPF (0-5) 10/27/25 19:19 Ur Squamous Epith Cells Many /HPF (NEGATIVE) 10/27/25 19:19 Urine Bacteria 1+ /HPF (NEGATIVE) 10/27/25 19:19 Ur Culture Indicated? No/not indicated 10/27/25 19:19 Other Results Comments: GFR is elevated. Patient is dehydrated with ARF XRAY XRAY Interpreted by: Self X-ray Results: Cardiomegaly without CHF EKG Rate: 73 Opioid Opioid Risk Tool Age (Carl box if 16-45): No History of Preadolescent Sexual Abuse: No Total: 0 Total Score Risk Category: Low Risk Copyright: Melo SHELTON predicting aberrant behaviors Discharge Plan Diagnosis Discharge Problem: Dizziness CHF (congestive heart failure) Qualifiers: Heart failure chronicity: chronic Acute renal failure (ARF) Qualifiers: Acute renal failure type: unspecified Qualified Code(s): N17.9 - Acute kidney failure, unspecified Discharge Plan Patient Disposition: ADMITTED INPATIENT Condition: Stable
[2025-10-28] MEDS: TOPROL XL PO SCH (09:04)
[2025-10-28] MEDS: K-DUR TAB 20 MEQ PO SCH (09:04)
[2025-10-28] MEDS: CELEXA PO SCH (09:04)
[2025-10-28 11:54] VITALS: BP 99/57; TEMP 97.8; O2SAT 97
[2025-10-28] MEDS ORDERED: SNACK - Diabetic Appropriate PO SCH (20:00)
--- NOTE | 2025-10-29 08:57 | DR.SSS ---
SHORT STAY SUMMARY Admission Date Date of Admission: 10/27/25 Discharge Date Discharge Date: 10/28/25 Admission Diagnoses Admission Diagnoses: ANAHY, weakness, dizziness Discharge Diagnoses Discharge Diagnoses: ANAHY, generalized deconditioning, anemia of chronic disease Chief Complaint Chief Complaint: Weakness History of Present Illness History of Present Illness: Patient not feeling well over couple days. Her daughter went to go pick her up to take her to her PCP. Unable to get into car. EMS called and assisted into vehicle. She was brought to the ER where she was found to be weakened and dehydrated. Had an ANAHY with mild hypokalemia and hypoglycemia, but otherwise fairly benign labs and vitals. Had been here couple of months ago for gallbladder issues. After her cholecystectomy, blood pressure was soft then but had better creatinine/GFR. She was admitted for IV fluids and close observation. Past Medical History Past Medical History: Anemia, Anxiety, Arthritis, GERD, Hypertension and Renal Disease Past Surgical History Surgical History: Cholecystectomy, Ortho Surgery, Weight Loss Surgery and Other Allergies Allergies Allergy/AdvReac Type Severity Reaction Status Date / Time No Known Drug Allergies Allergy Verified 10/27/25 16:33 Medications Home Medications: No Known Drug Allergies Allergy (Verified 10/27/25 16:33) CONTINUE taking the following medications levofloxacin 250 mg tablet 500 mg PO QDAY 10/27/25 [History] montelukast 10 mg tablet 10 mg PO QAM 10/27/25 [History] pantoprazole 40 mg tablet,delayed release 40 mg PO DAILY 10/27/25 [History] Family History Family Medical History: Diabetes Mellitus, [place], Coronary Artery Disease and Sudden Cardiac Social History Does patient currently use any type of tobacco product: No Type of Tobacco Use: None Alcohol Use: None Drug Use: None Physical Exam Vital Signs: Last Vital Signs Temp 97.8 F 10/28/25 11:53 Pulse 70 10/28/25 11:53 Resp 18 10/28/25 11:53 BP 99/57 10/28/25 11:53 Pulse Ox 97 10/28/25 11:53 O2 Del Method Room Air 10/28/25 11:53 Labs Labs: Laboratory Last Values WBC 6.7 X10^3/uL (3.6-10.0) 10/28/25 05:09 RBC 2.80 X10^6/uL (3.5-5.4) L 10/28/25 05:09 Hgb 8.6 g/dL (12.0-16.0) L 10/28/25 05:09 Hct 25.7 % (36.0-47.0) L 10/28/25 05:09 MCV 91.7 fL (80.0-100.0) 10/28/25 05:09 MCH 30.6 pg (27.0-34.0) 10/28/25 05:09 MCHC 33.4 g/dL (33.0-35.0) 10/28/25 05:09 RDW 15.4 % (11.6-16.5) 10/28/25 05:09 Plt Count 211 X10^3/uL (150.0-450.0) 10/28/25 05:09 MPV 7.5 fL (7.4-11.0) 10/28/25 05:09 Neut % (Auto) 68.4 % (42.0-75.0) 10/28/25 05:09 Lymph % (Auto) 16.9 % (21.0-51.0) L 10/28/25 05:09 [place] % (Auto) 8.3 % (0.0-13.0) 10/28/25 05:09 Eos % (Auto) 6.1 % (0.9-2.9) H 10/28/25 05:09 Baso % (Auto) 0.3 % (0.2-1.0) 10/28/25 05:09 Neut # (Auto) 4.6 x10^3/uL (2.2-4.8) 10/28/25 05:09 Lymph # (Auto) 1.1 X10^3/uL (1.3-2.9) L 10/28/25 05:09 [place]enson # (Auto) 0.6 x10^3/uL (0.3-0.8) 10/28/25 05:09 Eos # (Auto) 0.4 x10^3/uL (0.0-0.2) H 10/28/25 05:09 Baso # (Auto) 0.0 X10^3/uL (0.0-0.1) 10/28/25 05:09 Absolute Nucleated RBC 0.1 /100WBC 10/28/25 05:09 Sodium 141 mmol/L (136-145) 10/28/25 05:09 Corrected Sodium TNP 10/28/25 05:09 Potassium 3.5 mmol/L (3.5-5.1) 10/28/25 05:09 Chloride 106 mmol/L (98-107) 10/28/25 05:09 Carbon Dioxide 28.3 mmol/L (21-32) 10/28/25 05:09 BUN 21 mg/dL (7-18) H 10/28/25 05:09 Creatinine 2.58 mg/dL (0.55-1.02) H 10/28/25 05:09 Est GFR (MDRD) Af Amer 23 (>60) L 10/28/25 05:09 Est GFR (MDRD) Non-Af 19 (>60) L 10/28/25 05:09 Glucose 63 mg/dL (65-99) L 10/28/25 05:09 Calcium 7.6 mg/dL (8.5-10.1) L 10/28/25 05:09 Corrected Calcium 9.2 mg/dL (8.5-10.1) 10/28/25 05:09 Total Bilirubin 0.30 mg/dL (0.2-1.0) 10/28/25 05:09 AST 22 Units/L (15-37) 10/28/25 05:09 ALT 10 Units/L (12-78) L 10/28/25 05:09 Alkaline Phosphatase 65 Units/L (46-116) 10/28/25 05:09 Troponin I High Sens 8.7 ng/L (4.0-60.0) 10/27/25 19:52 B-Natriuretic Peptide 267 pg/mL (0-79) H 10/27/25 16:20 Total Protein 4.7 g/dL (6.4-8.2) L 10/28/25 05:09 Albumin 2.0 g/dL (3.4-5.0) L 10/28/25 05:09 Globulin 2.7 g/dL (2.5-4.5) 10/28/25 05:09 Albumin/Globulin Ratio 0.7 Ratio (1.1-2.1) L 10/28/25 05:09 Specimen Type Clean catch urine 10/27/25 19:19 Urine Color Yellow (YELLOW) 10/27/25 19:19 Urine Appearance Clear (CLEAR) 10/27/25 19:19 Urine pH 6.0 (5.0 - 8.0) 10/27/25 19:19 Ur Specific [place] 1.020 (1.000-1.030) 10/27/25 19:19 Urine Protein Negative (NEGATIVE) 10/27/25 19:19 Urine Glucose (UA) Negative (NEGATIVE) 10/27/25 19:19 Urine Ketones Negative (NEGATIVE) 10/27/25 19:19 Urine Blood Negative (NEGATIVE) 10/27/25 19:19 Urine Nitrite Negative (NEGATIVE) 10/27/25 19:19 Urine Bilirubin Negative (NEGATIVE) 10/27/25 19:19 Urine Urobilinogen Normal (NORMAL) 10/27/25 19:19 Ur Leukocyte Esterase 2+ (NEGATIVE) 10/27/25 19:19 Urine RBC 0-2 /HPF (0-3) 10/27/25 19:19 Urine WBC 3-5 /HPF (0-5) 10/27/25 19:19 Ur Squamous Epith Cells Many /HPF (NEGATIVE) 10/27/25 19:19 Urine Bacteria 1+ /HPF (NEGATIVE) 10/27/25 19:19 Ur Culture Indicated? No/not indicated 10/27/25 19:19 Assessment/Plan (1) Acute renal failure (ARF): (2) Hypertension: (3) Atrial fibrillation: (4) Anemia of chronic disease: (5) Hypoglycemia: (6) Acute hypokalemia: Discharge Medications Discharge Medications: Home Medication List levofloxacin 250 mg tablet 500 mg PO QDAY 10/27/25 [History] montelukast 10 mg tablet 10 mg PO QAM 10/27/25 [History] pantoprazole 40 mg tablet,delayed release 40 mg PO DAILY 10/27/25 [History] Prescriptions: Discharge Disposition Discharge Disposition: ROS: 12 point ROS negative except as noted above. Patient did well in the hospital. She did tolerate breakfast and lunch. Daughter is planning on taking her home to encourage increased p.o. nutrition and hydration. She will follow-up with hematology and PCP. Dizziness had resolved. She was feeling stronger but still not at baseline. Creatinine overall stable when looking at her outpatient labs. PE: Elderly female in no acute distress. Head NCAT with hearing grossly normal. Neck full range of motion. Heart regular rate and rhythm. Lungs are clear with strong speech. Belly is soft and nontender with bowel sounds present. No swelling of her extremities with good range of motion. Poor endurance but good strength for age. Severely kyphotic posture. Discharge Plan Discharge Plan Hospital Course: See above. Patient Disposition: HOME HEALTH SERVICE Condition: Stable Health Concerns: Post Hospitalization: new medications and changes needed to prevent readmission or further decline. Pt educated and given instructions on all concerns. Care Plan Goals: Problem: Fluid Volume Deficit Goal: Maintain/Improved Adequate hydration. Instructions: Follow provided instructions. Follow up with primary physician as directed. Contact primary care physician or report to the closest Emergency Room if condition worsens. Plan of Treatment: Continue with present treatment and follow up plan. Pt is to keep follow up appointment as instructed and take medications as ordered. Prescriptions: Continued citalopram 40 mg tablet 40 mg PO DAILY alprazolam 0.25 mg tablet 0.25 mg PO BID PRN (Reason: anxiety) cyanocobalamin (vitamin B-12) 1,000 mcg/mL solution 1,000 mcg IM QMONTH dabigatran etexilate 75 mg capsule 75 mg PO BID cetirizine 10 mg tablet 10 mg PO QPM furosemide 20 mg tablet 20 mg PO QDAY metoprolol succinate 25 mg tablet extended release 24 hr 25 mg PO QDAY loratadine 10 mg tablet 10 mg PO QAM Multaq 400 mg tablet 400 mg PO BID meloxicam 7.5 mg tablet 7.5 mg PO BID ergocalciferol (vitamin D2) 1,250 mcg (50,000 unit) capsule 1,250 mcg PO QWEEK Rx Instructions: one capsule po q monday levofloxacin 250 mg tablet 500 mg PO QDAY pantoprazole 40 mg tablet,delayed release (DR/EC) 40 mg PO DAILY montelukast 10 mg tablet 10 mg PO QAM Follow ups/Referrals Follow ups/Referrals: [facility]Other] VALENTINA VIERA [Primary Care Provider, Unknown] - 1 WEEK Referral Note: Unable to contact office - Call office for 1 week follow up. Instructions Instructions: Acute Kidney Injury, Adult, Fall Prevention in the Home, Adult, [id number], Near-Syncope, [id number], Rehydration, Older Adult, Dehydration, Older Adult, [id number] Stand Alone Forms: Find Help Web Site, [facility] Follow Up Care Print Language: AZERI
== END 2025-10-28 13:35 | disposition home health service (06) ==
LOC: MED/SURG 15:55 → ER 15:55 → MED/SURG 22:42
PROVIDERS: ADMIT Family Medicine; ATTEND Family Medicine
DX: R94.31 Abnormal electrocardiogram [ECG] [EKG]; N17.8 Other acute kidney failure; D63.8 Anemia in other chronic diseases classified elsewhere; R79.89 Other specified abnormal findings of blood chemistry; I48.91 Unspecified atrial fibrillation; I50.9 Heart failure, unspecified; R26.89 Other abnormalities of gait and mobility; R53.1 Weakness; E87.6 Hypokalemia; Z95.0 Presence of cardiac pacemaker; E16.1 Other hypoglycemia; R55 Syncope and collapse; Z79.899 Other long term (current) drug therapy; I11.0 Hypertensive heart disease with heart failure; E86.0 Dehydration; R42 Dizziness and giddiness; R06.02 Shortness of breath